=== PATIENT | female | born 1980 | race Caucasian/White ===

== ENCOUNTER 2018-08-25 20:08 | Inpatient (IN) ==
--- NOTE | 2018-08-25 21:01 | ED ---
HPI General Chief Complaint: Psychiatric Symptoms Stated Complaint: [facility] pd/psych eval Time Seen by Provider: 08/25/18 20:39 Source: patient and police Mode of arrival: ambulatory Limitations: no limitations History of Present Illness HPI Narrative: 38-year-old white female presents emergency department under [place] act by PD. Patient had contacted PD advising them that she has a history of bipolar disorder and schizoaffective disorder and has been off her medicines for the last several months after moving from [place] to [place]. She states that she feels depressed and has contemplated suicide but does not have any current plan. She denies any homicidal ideation. No toxic ingestions. She denies any current medical complaints. Past medical history: Chronic kidney disease, bipolar, schizoaffective disorder Surgical history: Left kidney surgery, laparoscopy with removal of cyst from the right ovary, Social history: Patient does smoke. She denies any alcohol or drugs. Related Data Home Medications Medication Instructions Recorded Confirmed bupropion HCl [Wellbutrin XL] 150 mg PO QAM 08/25/18 08/25/18 hydroxyzine pamoate [Vistaril] 50 mg PO TID PRN 08/25/18 08/25/18 trazodone 100 mg PO DAILY 08/25/18 08/25/18 Allergies Allergy/AdvReac Type Severity Reaction Status Date / Time erythromycin base Allergy Severe CHEST PAIN Verified 08/25/18 22:50 levofloxacin AdvReac Severe Nausea/Vomi Verified 08/25/18 22:50 ting *MDRO Multi-Drug Resistant AdvReac Unknown Rash, Uncoded 08/25/18 22:50 Organism Generalized Review of Systems ROS: all other systems reviewed are negative PMFSH History History Provided By: Patient Medical History Medical History Bipolar disorder (Acute) Social History Social History Substance History: No History of Abuse Second Hand Smoke Exposure: No Smoking Status: Never smoker How Often Do You Have a Drink Containing Alcohol: Never Recent Travel in [facility] within the Last 8 Weeks: No Recent Out of Country Travel within the Last 8 Weeks: No Exam Narrative Exam Narrative: GENERAL: Well-nourished, well-developed patient. SKIN: Warm and dry. HEAD: Normocephalic and atraumatic. EYES: No scleral icterus. No injection or drainage. ENT: No nasal drainage noted. Mucous membranes pink. Airway patent. NECK: Supple, trachea midline. Moves head freely without obvious discomfort. CARDIOVASCULAR: Regular rate and rhythm without murmurs, gallops, or rubs. RESPIRATORY: Breath sounds equal bilaterally. No accessory muscle use. GASTROINTESTINAL: Abdomen soft, non-tender, nondistended. EXTREMITIES: No cyanosis or edema. BACK: Nontender without obvious deformity. No CVA tenderness. NEURO: Patient is alert and oriented. no sensorimotor deficits. Nonfocal. Normal speech. PSYCH: No delusions. No auditory or visual hallucinations. Course Initial Documented Vital Signs Temperature 97.9 F 08/25/18 20:17 Pulse Rate 90 08/25/18 20:17 Respiratory Rate 16 08/25/18 20:17 Blood Pressure 132/71 08/25/18 20:17 Pulse Oximetry 97 08/25/18 20:17 Last Documented Vital Signs Temperature 96.8 F L 08/26/18 18:26 Pulse Rate 95 H 08/26/18 18:26 Respiratory Rate 18 08/26/18 18:26 Blood Pressure 107/60 08/26/18 18:26 Pulse Oximetry 100 08/26/18 18:26 Medical Decision Making MDM Narrative Medical decision making narrative: Patient will have routine laboratory testing for medical clearance Patient's potassium was 2.4. Patient was placed on a monitor. EKG performed. Patient was given 40 mEq of potassium p.o. and 40 mEq of potassium IV. She had a repeat potassium done at 5:45 AM. The potassium had gone up to 5.9. She is given an additional 40 mEq p.o. now at 630 and she will be given a second dose at 9 AM and again at 9 PM if patient is here in the ER. Once the patient gets her third dose of potassium at 9 AM she will be considered medically cleared. Medical Screen Exam Complete: Yes Emergency Medical Condition: Yes Differential Diagnosis Differential Diagnosis: MDM: High Differential diagnoses: Schizophrenia, schizoaffective disorder, bipolar, anxiety, depression, adjustment reaction, mood disorder NOS, ODD, depressive disorder NOS, dementia, dementia with agitation, psychosis NOS, substance induced mood disorder, DMDD, Asperger syndrome, infection,electrolyte abnormality, malingering. Mental health screening discussed with the patient. Psychiatric screen ordered. Lab Data Result diagrams: 08/25/18 20:30 08/26/18 15:00 POC Results POC Urine Results Negative Lab Results 08/25/18 08/25/18 08/25/18 Range/Units 20:30 20:30 20:30 WBC 8.1 (4.0-11.0) th/mm3 RBC 4.13 (4.00-5.30) mil/mm3 Hgb 13.7 (11.6-15.3) gm/dL Hct 41.2 (35.0-46.0) % MCV 99.8 (80.0-100.0) fL MCH 33.1 (27.0-34.0) pg MCHC 33.2 (32.0-36.0) % RDW 15.8 (11.6-17.2) % Plt Count 161 (150-450) th/mm3 MPV 11.0 (7.0-11.0) fL Neut % (Auto) 69.8 (16.0-70.0) % Lymph % (Auto) 23.9 (9.0-44.0) % [place] % (Auto) 5.3 (0.0-8.0) % Eos % (Auto) 0.2 (0.0-4.0) % Baso % (Auto) 0.8 (0.0-2.0) % Neut # (Auto) 5.7 (1.8-7.7) th/mm3 Lymph # (Auto) 1.9 (1.0-4.8) th/mm3 [place] # (Auto) 0.4 (0.0-0.9) th/mm3 Eos # (Auto) 0.0 (0.0-0.4) th/mm3 Baso # (Auto) 0.1 (0.0-0.2) th/mm3 WBC Differential . Differential Comment Auto diff final Sodium 137 (136-145) meq/L Potassium 2.4 L* (3.5-5.1) meq/L Chloride 117 H (98-107) meq/L Carbon Dioxide 15.0 L (21.0-32.0) meq/L Anion Gap 5 (5-15) meq/L BUN 4 L (7-18) mg/dL Creatinine 0.88 (0.50-1.00) mg/dL Estimated GFR 72 L (>89) mL/min Random Glucose 113 H (74-106) mg/dL Calcium 8.2 L (8.5-10.1) mg/dL Magnesium (1.5-2.5) mg/dL Total Bilirubin 0.5 (0.2-1.0) mg/dL AST 38 H (15-37) U/L ALT 58 H (10-53) U/L Alkaline Phosphatase 98 (45-117) U/L Total Protein 7.1 (6.4-8.2) g/dL Albumin 3.6 (3.4-5.0) g/dL Urine Opiates Screen Neg (Neg) Ur Barbiturates Screen Neg (Neg) Ur Amphetamines Screen Neg (Neg) U Benzodiazepines Scrn Neg (Neg) Urine Cocaine Screen Pos H (Neg) U Cannabinoids Screen Neg (Neg) Serum Alcohol Less than 3 (0-5) mg/dL 08/25/18 08/26/18 08/26/18 Range/Units 20:30 06:00 15:00 WBC (4.0-11.0) th/mm3 RBC (4.00-5.30) mil/mm3 Hgb (11.6-15.3) gm/dL Hct (35.0-46.0) % MCV (80.0-100.0) fL MCH (27.0-34.0) pg MCHC (32.0-36.0) % RDW (11.6-17.2) % Plt Count (150-450) th/mm3 MPV (7.0-11.0) fL Neut % (Auto) (16.0-70.0) % Lymph % (Auto) (9.0-44.0) % [place] % (Auto) (0.0-8.0) % Eos % (Auto) (0.0-4.0) % Baso % (Auto) (0.0-2.0) % Neut # (Auto) (1.8-7.7) th/mm3 Lymph # (Auto) (1.0-4.8) th/mm3 [place] # (Auto) (0.0-0.9) th/mm3 Eos # (Auto) (0.0-0.4) th/mm3 Baso # (Auto) (0.0-0.2) th/mm3 WBC Differential Differential Comment Sodium (136-145) meq/L Potassium 2.9 L* 3.1 L (3.5-5.1) meq/L Chloride (98-107) meq/L Carbon Dioxide (21.0-32.0) meq/L Anion Gap (5-15) meq/L BUN (7-18) mg/dL Creatinine (0.50-1.00) mg/dL Estimated GFR (>89) mL/min Random Glucose (74-106) mg/dL Calcium (8.5-10.1) mg/dL Magnesium 2.1 (1.5-2.5) mg/dL Total Bilirubin (0.2-1.0) mg/dL AST (15-37) U/L ALT (10-53) U/L Alkaline Phosphatase (45-117) U/L Total Protein (6.4-8.2) g/dL Albumin (3.4-5.0) g/dL Urine Opiates Screen (Neg) Ur Barbiturates Screen (Neg) Ur Amphetamines Screen (Neg) U Benzodiazepines Scrn (Neg) Urine Cocaine Screen (Neg) U Cannabinoids Screen (Neg) Serum Alcohol (0-5) mg/dL Discharge Plan Discharge Disposition Patient Disposition: 30 Still Patient Discharge Condition Condition: Stable Physicians Team ED Provider: Miguel Moore ED Midlevel Provider: Davion Wu Primary Care Provider: Primary Care Alexandra Valadez Rxs /Orders / Referrals /Forms Prescriptions: No Action hydroxyzine pamoate [Vistaril] 50 mg Capsule 50 mg PO TID PRN (Reason: Anxiety) RF: 0 trazodone 100 mg Tablet 100 mg PO DAILY RF: 0 bupropion HCl [Wellbutrin XL] 150 mg Tablet Extended Release 24 Hr 150 mg PO QAM RF: 0 Status ED Status: Medically Cleared
[2018-08-25 21:13] LABS: Baso # (Auto) 0.1 th/mm3 (0.0-0.2); Baso % (Auto) 0.8 % (0.0-2.0); Eos % (Auto) 0.2 % (0.0-4.0); Hematocrit 41.2 % (35.0-46.0); Hemoglobin 13.7 gm/dL (11.6-15.3); Lymph # (Auto) 1.9 th/mm3 (1.0-4.8); Lymph % (Auto) 23.9 % (9.0-44.0); Mean Corpuscular HGB Conc 33.2 % (32.0-36.0); Mean Corpuscular Hemoglobin 33.1 pg (27.0-34.0); Mean Corpuscular Volume 99.8 fL (80.0-100.0); Mono # (Auto) 0.4 th/mm3 (0.0-0.9); Mono % (Auto) 5.3 % (0.0-8.0); Neut # (Auto) 5.7 th/mm3 (1.8-7.7); Neut % (Auto) 69.8 % (16.0-70.0); Platelet Count 161 th/mm3 (150-450); Red Blood Count 4.13 mil/mm3 (4.00-5.30); Red Cell Distribution Width 15.8 % (11.6-17.2); White Blood Count 8.1 th/mm3 (4.0-11.0)
[2018-08-25 21:35] LABS: Alanine Aminotransferase 58 U/L (10-53); Albumin 3.6 g/dL (3.4-5.0); Alkaline Phosphatase 98 U/L (45-117); Anion Gap 5 meq/L (5-15); Aspartate Aminotransferase 38 U/L (15-37); Blood Urea Nitrogen 4 mg/dL (7-18); Calcium 8.2 mg/dL (8.5-10.1); Chloride 117 meq/L (98-107); Glomerular Filtration Rate 72 mL/min (>89); Glucose,Random 113 mg/dL (74-106); Sodium 137 meq/L (136-145); Total Protein 7.1 g/dL (6.4-8.2)
[2018-08-25 21:36] LABS: Potassium 2.4 meq/L (3.5-5.1)
[2018-08-25 21:53] LABS: Amphetamine Screen,Urine Neg (Neg); Barbiturate Screen,Urine Neg (Neg); Cannabinoid Screen,Urine Neg (Neg); Cocaine Screen,Urine Pos (Neg)
[2018-08-25 21:56] LABS: Opiate Screen,Urine Neg (Neg)
[2018-08-26] MEDS: Potassium Chlor 20 mEq Premix 20 MEQ/100 ML PIGGYBACK IV.SIG SCH ×2 (00:17→03:03)
[2018-08-26] MEDS: Sod Chloride 0.9% Inj 1,000 ML IV.CONT SCH ×3 (00:18→20:47)
--- NOTE | 2018-08-26 08:50 | ECG ---
Date Performed: 08/25/2018 Time Performed: 22:52:00 PTAGE: 38 years EKG: Sinus rhythm POSSIBLE LEFT ATRIAL ENLARGEMENT NONSPECIFIC T-WAVE ABNORMALITY BORDERLINE ECG PREVIOUS TRACING : 08/10/2017 20.59 Compared to previous tracing, nonspecific T wave abnormalit y is now present. DOCTOR: Juan Cai Interpretating Date/Time 08/26/2018 08:49:23
[2018-08-26] MEDS ORDERED: Acetaminophen 325 MG Tablet PO ONE (23:43)
[2018-08-27] MEDS ORDERED: traZODone 100 MG Tablet PO ONE (00:22)
[2018-08-27] MEDS: Sod Chloride 0.9% Inj 1,000 ML IV.CONT SCH ×2 (08:57→16:28)
--- NOTE | 2018-08-27 11:29 | ED ---
HPI - Psych - General Source: patient, old records reviewed, police Mode of arrival: ambulatory Limitations: no limitations - History of Present Illness MD complaint: suicidal ideation, feels depressed Onset (ago): week(s) Duration: constant History of same: Yes Relieving factors: none Context: not taking psychiatric medications Associated psychiatric symptoms: depression, suicidal ideation, auditory hallucinations Associated symptoms: denies other symptoms Treatments prior to arrival: none - General Chief Complaint: Psychiatric Symptoms Stated Complaint: [facility] pd/psych eval Time Seen by Provider: 08/25/18 20:39 - History of Present Illness HPI Narrative: History of Present Illness HPI Narrative: 38-year-old white,single, unemployed female, with history of bipolar disorder presents emergency department under [place] act by PD. Patient had contacted PD advising them that she has a history of bipolar disorder and schizoaffective disorder and has been off her medicines for the last several months after moving from [facility] and that she wants to hurt herself. Patient is seen. Awake alert, oriented. Patient is cooperative. Speech is clear and logical. Patient reports her mood is depressed, feeling suicidal, no current plan. Also reports hearing voices that are intermittent, non-command type. Reports variable sleep pattern with going to to 3 days at a time with without any sleep, feels like her mind is racing, difficulty concentrating. Patient has not taken psychiatric medication for several months since she moved to the area. EMR is reviewed. Her last psychiatric hospitalization at [facility] was in July 2016. She was seen in our ED in July 2017 after an overdose. In terms of substance abuse patient denies any substance abuse but current toxicology is positive for cocaine she denies using any cocaine. (Eli Oliver) - Related Data Home Medications Medication Instructions Recorded Confirmed bupropion HCl [Wellbutrin XL] 150 mg PO QAM 08/25/18 08/25/18 hydroxyzine pamoate [Vistaril] 50 mg PO TID PRN 08/25/18 08/25/18 trazodone 100 mg PO DAILY 08/25/18 08/25/18 Allergies Allergy/AdvReac Type Severity Reaction Status Date / Time erythromycin base Allergy Severe CHEST PAIN Verified 08/25/18 22:50 levofloxacin AdvReac Severe Nausea/Vomi Verified 08/25/18 22:50 ting *MDRO Multi-Drug Resistant AdvReac Unknown Rash, Uncoded 08/25/18 22:50 Organism Generalized PMFSH - History History Provided By: Patient - Medical History Medical History: Medical History (Last Updated 08/25/18 @ 23:31 by Bhavya Canales RN) Bipolar disorder - Social History I have reviewed the patient's Social History: Yes - Tobacco History Second Hand Smoke Exposure: No Smoking Status: Never smoker - Alcohol History How Often Do You Have a Drink Containing Alcohol: Never - Substance Use History Substance History: No History of Abuse - Travel History Recent Travel in the [place] Within the Last 8 Weeks: No Recent Travel Out of the Country Within the Last 8 Weeks: No - Immunization History Tetanus Immunization: Unsure Psychiatric History - Psychiatric History Psychiatric Treatment History: History of Psychiatric Treatment, History of Hospitalization in a Psychiatric Facility History of Inpatient Treatment: Yes Firearms in Home: No - Psychiatric History Patient has had multiple psychiatric hospitalizations her last hospitalization at [facility] was in 2016. Past history of suicide attempt by overdosing. (Eli Oliver) Physical Exam - General Limitations: no limitations Mental Status Examination Consciousness: Alert Orientation: x4 Motor Activity: Normal gait Speech: Unremarkable Language: Adequate Fund of Knowledge: Adequate Attention and Concentration: Adequate Memory: Unremarkable Mood: Sad Affect: Sad Thought Process & Associations: Intact, Logical, Goal directed Thought Content: Hallucinations Hallucination Type: Auditory Delusion Type: None Suicidal Ideation: Yes Suicidal Plan: No Suicidal Intention: No Homicidal Ideation: No Homicidal Plan: No Homicidal Intention: No Insight: Fair Judgment: Adequate Initial Documented Vital Signs Temperature 97.9 F 08/25/18 20:17 Pulse Rate 90 08/25/18 20:17 Respiratory Rate 16 08/25/18 20:17 Blood Pressure 132/71 08/25/18 20:17 Pulse Oximetry 97 08/25/18 20:17 Last Documented Vital Signs Temperature 98.1 F 08/27/18 05:53 Pulse Rate 77 08/27/18 05:53 Respiratory Rate 18 08/27/18 05:53 Blood Pressure 92/55 L 08/27/18 05:53 Pulse Oximetry 98 08/27/18 05:53 MDM - Psych - Diagnosis (1) Schizoaffective disorder, bipolar type Status: Acute - Lab Data Result diagrams: 08/25/18 20:30 08/26/18 15:00 - MDM Narrative Medical decision making narrative: 38-year-old female with history of bipolar disorder, previous suicide attempt, previous psychiatric hospitalization, currently not in treatment who presents to the emergency department under Ortiz act. The patient meets criteria for inpatient psychiatric unit for safety, stabilization and to reinitiate her psychiatric medications. (Eli Oliver) - Lab Data POC Results POC Urine Results Negative Lab Results 08/25/18 08/25/18 08/25/18 Range/Units 20:30 20:30 20:30 WBC 8.1 (4.0-11.0) th/mm3 RBC 4.13 (4.00-5.30) mil/mm3 Hgb 13.7 (11.6-15.3) gm/dL Hct 41.2 (35.0-46.0) % MCV 99.8 (80.0-100.0) fL MCH 33.1 (27.0-34.0) pg MCHC 33.2 (32.0-36.0) % RDW 15.8 (11.6-17.2) % Plt Count 161 (150-450) th/mm3 MPV 11.0 (7.0-11.0) fL Neut % (Auto) 69.8 (16.0-70.0) % Lymph % (Auto) 23.9 (9.0-44.0) % [place] % (Auto) 5.3 (0.0-8.0) % Eos % (Auto) 0.2 (0.0-4.0) % Baso % (Auto) 0.8 (0.0-2.0) % Neut # (Auto) 5.7 (1.8-7.7) th/mm3 Lymph # (Auto) 1.9 (1.0-4.8) th/mm3 [place] # (Auto) 0.4 (0.0-0.9) th/mm3 Eos # (Auto) 0.0 (0.0-0.4) th/mm3 Baso # (Auto) 0.1 (0.0-0.2) th/mm3 WBC Differential . Differential Comment Auto diff final Sodium 137 (136-145) meq/L Potassium 2.4 L* (3.5-5.1) meq/L Chloride 117 H (98-107) meq/L Carbon Dioxide 15.0 L (21.0-32.0) meq/L Anion Gap 5 (5-15) meq/L BUN 4 L (7-18) mg/dL Creatinine 0.88 (0.50-1.00) mg/dL Estimated GFR 72 L (>89) mL/min Random Glucose 113 H (74-106) mg/dL Calcium 8.2 L (8.5-10.1) mg/dL Magnesium (1.5-2.5) mg/dL Total Bilirubin 0.5 (0.2-1.0) mg/dL AST 38 H (15-37) U/L ALT 58 H (10-53) U/L Alkaline Phosphatase 98 (45-117) U/L Total Protein 7.1 (6.4-8.2) g/dL Albumin 3.6 (3.4-5.0) g/dL Urine Opiates Screen Neg (Neg) Ur Barbiturates Screen Neg (Neg) Ur Amphetamines Screen Neg (Neg) U Benzodiazepines Scrn Neg (Neg) Urine Cocaine Screen Pos H (Neg) U Cannabinoids Screen Neg (Neg) Serum Alcohol Less than 3 (0-5) mg/dL 08/25/18 08/26/18 08/26/18 Range/Units 20:30 06:00 15:00 WBC (4.0-11.0) th/mm3 RBC (4.00-5.30) mil/mm3 Hgb (11.6-15.3) gm/dL Hct (35.0-46.0) % MCV (80.0-100.0) fL MCH (27.0-34.0) pg MCHC (32.0-36.0) % RDW (11.6-17.2) % Plt Count (150-450) th/mm3 MPV (7.0-11.0) fL Neut % (Auto) (16.0-70.0) % Lymph % (Auto) (9.0-44.0) % [place] % (Auto) (0.0-8.0) % Eos % (Auto) (0.0-4.0) % Baso % (Auto) (0.0-2.0) % Neut # (Auto) (1.8-7.7) th/mm3 Lymph # (Auto) (1.0-4.8) th/mm3 [place] # (Auto) (0.0-0.9) th/mm3 Eos # (Auto) (0.0-0.4) th/mm3 Baso # (Auto) (0.0-0.2) th/mm3 WBC Differential Differential Comment Sodium (136-145) meq/L Potassium 2.9 L* 3.1 L (3.5-5.1) meq/L Chloride (98-107) meq/L Carbon Dioxide (21.0-32.0) meq/L Anion Gap (5-15) meq/L BUN (7-18) mg/dL Creatinine (0.50-1.00) mg/dL Estimated GFR (>89) mL/min Random Glucose (74-106) mg/dL Calcium (8.5-10.1) mg/dL Magnesium 2.1 (1.5-2.5) mg/dL Total Bilirubin (0.2-1.0) mg/dL AST (15-37) U/L ALT (10-53) U/L Alkaline Phosphatase (45-117) U/L Total Protein (6.4-8.2) g/dL Albumin (3.4-5.0) g/dL Urine Opiates Screen (Neg) Ur Barbiturates Screen (Neg) Ur Amphetamines Screen (Neg) U Benzodiazepines Scrn (Neg) Urine Cocaine Screen (Neg) U Cannabinoids Screen (Neg) Serum Alcohol (0-5) mg/dL
[2018-08-27] MEDS: Loperamide 2 MG Capsule PO PRN (21:04)
[2018-08-27] MEDS: Aluminum/Magnesium/Simethacone Susp 30 ML UDC PO PRN (21:40)
[2018-08-28] MEDS: Aluminum/Magnesium/Simethacone Susp 30 ML UDC PO PRN ×3 (05:15→21:32)
[2018-08-28] MEDS: Loperamide 2 MG Capsule PO PRN ×4 (05:17→21:32)
[2018-08-28 08:56] LABS: Anion Gap 4 meq/L (5-15); Blood Urea Nitrogen 4 mg/dL (7-18); Calcium 8.4 mg/dL (8.5-10.1); Carbon Dioxide 26.1 meq/L (21.0-32.0); Chloride 111 meq/L (98-107); Chol/HDL Ratio 2.28 Ratio; Cholesterol 161 mg/dL (120-200); Glomerular Filtration Rate Greater Than 89 mL/min (>89); Glucose,Random 108 mg/dL (74-106); HDL Cholesterol 70.4 mg/dL (40.0-60.0); LDL Cholesterol,Calculated 67 mg/dL (0-99); Sodium 141 meq/L (136-145); Triglycerides 118 mg/dL (42-150)
[2018-08-28 09:01] LABS: Potassium 2.8 meq/L (3.5-5.1)
[2018-08-28] MEDS ORDERED: Potassium Chloride 25 MEQ Effervescent Tablet PO ONE (10:39)
--- NOTE | 2018-08-28 13:46 | P.HPPSY ---
Provisional Diagnosis Admission Date: August 27, 2018 11:30 Competence Certification of Person's Competence To Provide Express and Informed Consent I have personally examined Stephanie Bonds, a person being served at [facility] on, August 28, 2018 4729. Express and informed consent means consent voluntarily given in writing, by a competent person, after sufficient explanation and disclosure of the subject matter involved to enable the person to make a knowing and willful decision without any element of force, fraud, deceit, duress, or other form of constraint or coercion. This person is 18 years of age or older, is not now known to be incompetent to consent to treatment with a guardian advocate, and does not have a health care surrogate or proxy currently making medical treatment decisions. I have found this person to be one of the following: [X] Competent to provide express and informed consent, as defined above, for voluntary admission to this facility and is competent to provide express and informed consent for treatment. He/she has the consistent capacity to make well reasoned, willful, and knowing decisions concerning his or her medical or mental health treatment. The person fully and consistently understands the purpose of the admission for examination/placement and is fully capable of personally exercising all rights assured under [place] [] Incompetent to provide express and informed consent to voluntary admission, and this is incompetent to provide express and informed consent to treatment. The person must be transferred to involuntary status and a petition for a guardian advocate filed with the Circuit Court. [] Refusing to provide express and informed consent to voluntary admission but is competent to provide express and informed consent for treatment. The person must be discharged or transferred to involuntary status. Form shall be completed within 24 hours of a person's arrival at the receiving facility and filed in the clinical record of each person: 1. Admitted on a voluntary basis 2. Permitted to provide express and informed consent to his/her own treatment 3. Allowed to transfer from involuntary to voluntary status 4. Prior to permitting a person to consent to his or her own treatment after having been previously found incompetent to consent to treatment. History of Present Illness Capacity: Has capacity Chief Complaint: SI History of Present Illness: Patient is a 38-year-old female with a history of mood disorder and multiple suicide attempts. Patient says she has history of bipolar depression. She is admitted to the psychiatric unit with suicidal ideation without plan. There is concern of secondary gain given her homelessness and disability application. Patient is positive for cocaine but claims that is a mistake. She is showing some signs of withdrawal such as nausea and she vomited a couple times today. Nursing noted hypokalemia this morning and she was corrected before my visit. Patient says she has been homeless sleeping intents and then her friends couches. She began feeling hopeless and helpless and had fleeting suicidal ideation. Her protective factors include her son. Today she denies any suicidal ideation intent or plan. Patient also claims that she has "episodes" where she believes her brother implanted a chip in her head. Thought process is clear and logical. Past psych: Patient says she has been diagnosed with bipolar depression in the past. Patient claims she has a suicide attempt once a month via overdose. Denies a history of cutting. Was a patient at [facility]. Past medications include Wellbutrin, Vistaril, Zyprexa, trazodone which she has not had in 4 months Past medical: Chronic kidney disease Past Famhx: Major depression and bipolar in her family Past Social: Patient denies any substance use though she is positive for cocaine. She has 1 child who lives with his father. Not working at this time - Inpatient Certification I certify that the inpatient services were ordered in accordance with Medicare regulations governing the order. This includes certification that hospital inpatient services are reasonable and necessary and in the case of services not specified as inpatient-only under 42 CFR 419.22(n), that they are appropriately provided as inpatient services in accordance to with the 2-midnight benchmark under 43 CFR 412.3(e) I certify that inpatient psychiatric hospital services are medically necessary. Evaluation and treatment and/or diagnostic testing are expected to improve the patient's condition. The patient needs on a daily basis, active treatment furnished directly by or requiring the supervision of inpatient psychiatric facility personnel. Estimated Total Length of Stay (Days): 8 Plans for Post Hospital Care: Home Review of Systems All other systems reviewed negative except as stated in HPI [facility] - History History Provided By: Patient - Medical History Medical History: Medical History (Last Updated 08/28/18 @ 13:43 by Rolando Saldaña DO) Bipolar disorder Kidney disease - Social History I have reviewed the patient's Social History: Yes - Tobacco History Second Hand Smoke Exposure: No Tobacco Use In Past 30 Days: Yes Smoking Status: Former smoker Tobacco Type: Cigarettes - Alcohol History How Often Do You Have a Drink Containing Alcohol: Never - Substance Use History Substance History: No History of Abuse - Travel History Recent Travel in the [place] Within the Last 8 Weeks: No Recent Travel Out of the Country Within the Last 8 Weeks: No - Immunization History Tetanus Immunization: Unsure Medications and Allergies Active Medications: Active Medications Al Hydrox/Mg Hydrox/Simethicone (Mag-Al Plus Susp Liq) 30 ml PO Q6H PRN PRN Reason: DYSPEPSIA Last Admin: 08/28/18 05:15 Dose: 30 ml Al Hydroxide/Mg Hydroxide (Milk Of Magnesia Liq) 30 ml PO Q12H PRN PRN Reason: Mild Constipation Hydroxyzine HCl (Atarax) 50 mg PO Q6H PRN PRN Reason: ANXIETY Sodium Chloride (Ns Inj) 1,000 mls @ 125 mls/hr IV.CONT .Q8H MARILU Last Admin: 08/27/18 16:28 Dose: Not Given Loperamide HCl (Imodium) 2 mg PO Q4H PRN PRN Reason: DIARRHEA Last Admin: 08/28/18 11:59 Dose: 2 mg Potassium Chloride (K-Dur) 20 meq PO DAILY MARILU Sennosides (Senokot) 17.2 mg PO Q12H PRN PRN Reason: Moderate Constipation Allergies Allergy/AdvReac Type Severity Reaction Status Date / Time erythromycin base Allergy Severe CHEST PAIN Verified 08/25/18 22:50 levofloxacin AdvReac Severe Nausea/Vomi Verified 08/25/18 22:50 ting *MDRO Multi-Drug Resistant AdvReac Unknown Rash, Uncoded 08/25/18 22:50 Organism Generalized Home Medications Medication Instructions Recorded Confirmed Type bupropion HCl [Wellbutrin XL] 150 mg PO QAM 08/25/18 08/25/18 History hydroxyzine pamoate [Vistaril] 50 mg PO TID PRN 08/25/18 08/25/18 History trazodone 100 mg PO DAILY 08/25/18 08/25/18 History Results - Labs CBC & Chem 7: 08/25/18 20:30 08/28/18 07:24 Labs: Laboratory Results - last 24 hr 08/28/18 08/28/18 08/28/18 07:24 07:24 07:24 Sodium 141 Potassium 2.8 L* Chloride 111 H Carbon Dioxide 26.1 Anion Gap 4 L BUN 4 L Creatinine 0.61 Estimated GFR Greater than 89 Random Glucose 108 H Hemoglobin A1c 4.0 L Calcium 8.4 L Phosphorus 1.5 L Magnesium Triglycerides 118 Cholesterol 161 LDL Cholesterol, Calc 67 HDL Cholesterol 70.4 H Cholesterol/HDL Ratio 2.28 08/28/18 07:24 Sodium Potassium Chloride Carbon Dioxide Anion Gap BUN Creatinine Estimated GFR Random Glucose Hemoglobin A1c Calcium Phosphorus Magnesium 2.3 Triglycerides Cholesterol LDL Cholesterol, Calc HDL Cholesterol Cholesterol/HDL Ratio Exam Vital signs: Vital Signs 08/27/18 20:10 08/28/18 06:00 Temperature 97.3 F L 98.2 F Pulse Rate 101 H 96 H Respiratory Rate 17 17 Blood Pressure 112/61 112/65 Pulse Oximetry 99 97 Mental Status Examination Appearance: Disheveled Consciousness: Alert Orientation: x4 Motor Activity: Normal gait Speech: Unremarkable Language: Adequate Fund of Knowledge: Adequate Attention and Concentration: Adequate Memory: Unremarkable Mood: Sad Affect: Sad Thought Process & Associations: Intact, Logical, Goal directed Thought Content: Bizarre thinking Delusion Type: Bizarre Suicidal Ideation: No Suicidal Plan: No Suicidal Intention: No Homicidal Ideation: No Homicidal Plan: No Homicidal Intention: No Insight: Fair Judgment: Adequate Assessment and Plan - Assessment (1) Bipolar disorder, current episode depressed, severe, with psychotic features Code(s): F31.5 - Bipolar disorder, current episode depressed, severe, with psychotic features Status: Acute - Plan Plan: Estimated LOS: [] days We will repeat a potassium this afternoon. Parameters were discussed with the nurse and she was asked to call the on-call doctor if it continues to be low. Medications were reviewed with patient and she gives consent to start Seroquel and Atarax. Medical consult ordered. EKG ordered. May sign voluntary Justification for Continued Inpatient Stay: Patient would decompensate in a less restrictive setting
[2018-08-28] MEDS: Ibuprofen 600 MG Tablet PO PRN ×2 (13:49→20:51)
--- NOTE | 2018-08-28 16:43 | P.CON ---
History of Present Illness Service: [facility] Consult date: 08/28/18 Requesting Physician: Rolando Saldaña Reason for Consult: Assist with critically low potassium Primary Care Provider: No Primary Care Physician Chief Complaint: "Diarrhea" History of Present Illness: 38-year-old white female with past medical history of left kidney surgery, chronic kidney disease, bipolar disorder who came into the hospital under [place] act by police department. Apparently patient has contacted the police department stating that she is feeling depressed and contemplated on suicide. Patient is now admitted to inpatient psychiatry unit for further evaluation. Consulted for assistance with critically low potassium. Patient seen and examined today. Reports upon being at the hospital, she started to have nausea, vomiting, diarrhea. States that more than 10 times she was going to the bathroom for liquid stool. States that she always has problems with her potassium she is supposed to be on potassium supplements but she was unable to take it at home. States that she is not on any medications at home. States that she has chronic kidney disease. States that she has multiple surgeries on her right kidney. Patient also states that she has nausea and vomiting and not able to hold her food. States that she was given a one-time dose of Zofran but was not able to help her out. Patient also complains of having nausea and vomiting and burning sensation on her throat after. States she had acid reflux disease. Patient denies any illicit drug use including cocaine which she states that she tested positive at the hospital saying it was impossible because she never does any drugs. States that she can only recall that before she came into the hospital she was at a friend's house because she was homeless and that at a friend's house people were using drugs and there and smoking crack cocaine that she probably inhaled. Otherwise, denies chest pain, palpitations, headaches, dizziness. Denies any burning sensation with urination. Denies shortness of breath or dyspnea. Review of Systems All other systems reviewed negative except as stated in HPI PMF - History History Provided By: Patient - Medical History Medical History: Medical History (Last Reviewed 08/28/18 @ 17:00 by DEANDRE Stokes) Bipolar disorder Kidney disease - Surgical History Surgical History: Surgical History (Last Updated 08/28/18 @ 17:01 by DEANDRE Stokes) History of kidney surgery History of nephrostomy - Family History Family History: Family History (Last Updated 08/28/18 @ 17:01 by DEANDRE Stokes) Other Parents - Social History I have reviewed the patient's Social History: Yes - Tobacco History Second Hand Smoke Exposure: No Tobacco Use In Past 30 Days: Yes Smoking Status: Former smoker Tobacco Type: Cigarettes - Alcohol History How Often Do You Have a Drink Containing Alcohol: Never - Substance Use History Substance History: No History of Abuse - Travel History Recent Travel in the [place] Within the Last 8 Weeks: No Recent Travel Out of the Country Within the Last 8 Weeks: No - Immunization History Tetanus Immunization: Unsure Medications and Allergies Active Medications: Active Medications Al Hydrox/Mg Hydrox/Simethicone (Mag-Al Plus Susp Liq) 30 ml PO Q6H PRN PRN Reason: DYSPEPSIA Last Admin: 08/28/18 14:06 Dose: 30 ml Al Hydroxide/Mg Hydroxide (Milk Of Magnesia Liq) 30 ml PO Q12H PRN PRN Reason: Mild Constipation Hydroxyzine HCl (Atarax) 50 mg PO Q6H PRN PRN Reason: ANXIETY Last Admin: 08/28/18 13:49 Dose: 50 mg Sodium Chloride (Ns Inj) 1,000 mls @ 125 mls/hr IV.CONT .Q8H MARILU Last Admin: 08/27/18 16:28 Dose: Not Given Ibuprofen (Motrin) 600 mg PO Q6HR PRN PRN Reason: PAIN 1-10 AND/OR FEVER >101F Last Admin: 08/28/18 13:49 Dose: 600 mg Loperamide HCl (Imodium) 2 mg PO Q4H PRN PRN Reason: DIARRHEA Last Admin: 08/28/18 11:59 Dose: 2 mg Potassium Chloride (K-Dur) 20 meq PO DAILY MARILU Quetiapine Fumarate (Seroquel) 100 mg PO HS MARILU Sennosides (Senokot) 17.2 mg PO Q12H PRN PRN Reason: Moderate Constipation Allergies Allergy/AdvReac Type Severity Reaction Status Date / Time erythromycin base Allergy Severe CHEST PAIN Verified 08/25/18 22:50 levofloxacin AdvReac Severe Nausea/Vomi Verified 08/25/18 22:50 ting *MDRO Multi-Drug Resistant AdvReac Unknown Rash, Uncoded 08/25/18 22:50 Organism Generalized Home Medications Medication Instructions Recorded Confirmed Type bupropion HCl [Wellbutrin XL] 150 mg PO QAM 08/25/18 08/25/18 History hydroxyzine pamoate [Vistaril] 50 mg PO TID PRN 08/25/18 08/25/18 History trazodone 100 mg PO DAILY 08/25/18 08/25/18 History Physical Exam Vital signs: Vital Signs 08/27/18 20:10 08/28/18 06:00 Temperature 97.3 F L 98.2 F Pulse Rate 101 H 96 H Respiratory Rate 17 17 Blood Pressure 112/61 112/65 Pulse Oximetry 99 97 Narrative: GENERAL: This is a well-nourished, well-developed patient, in no apparent distress. SKIN: Warm and dry. HEENT: Normocephalic. Pupils equal round and reactive. Nose without bleeding. Airway patent. NECK: Trachea midline. CARDIOVASCULAR: Regular rate and rhythm without murmurs, gallops, or rubs. RESPIRATORY: Clear to auscultation. Breath sounds equal bilaterally. No wheezes , rales, or rhonchi. GASTROINTESTINAL: Abdomen soft, non-tender, nondistended. Bowel Sounds normoactive. MUSCULOSKELETAL: Extremities without clubbing, cyanosis, or edema. NEUROLOGICAL: Awake and alert. No focal neuro deficit. Moves all extremities. Normal speech. Assessment and Plan - Assessment (1) Hypokalemia Code(s): E87.6 - Hypokalemia Status: Acute (2) Diarrhea Code(s): R19.7 - Diarrhea, unspecified Status: Acute (3) Schizoaffective disorder, bipolar type Code(s): F25.0 - Schizoaffective disorder, bipolar type Status: Acute - Plan 38-year-old white female with past medical history of left kidney surgery, chronic kidney disease, bipolar disorder who came into the hospital under [place] act by police department. Apparently patient has contacted the police department stating that she is feeling depressed and contemplated on suicide. Patient is now admitted to inpatient psychiatry unit for further evaluation. Consulted for assistance with critically low potassium Depression, suicidal ideation -Managed by psychiatry team Hypokalemia possibly secondary to excessive fluid loss secondary to diarrhea -Potassium supplements. -Magnesium was checked within normal limits. Phosphorus is low. -K-Phos to be administered. -Check BMP tomorrow, include potassium and magnesium Diarrhea Nausea vomiting -Check stool for C. difficile, other pathology -Lactinex twice daily -Zofran PRN -Follow-up results History of chronic kidney disease -Renal indicis within normal DVT prop, ambulatory Code Status: Full code Discussed Condition With: Patient, nursing Discharge Planning: DC disposition by primary team
[2018-08-28] MEDS: Pantoprazole Sodium 20 MG DR Tablet PO SCH (17:20)
[2018-08-28] MEDS: QUEtiapine 100 MG Tablet PO SCH (20:51)
[2018-08-28] MEDS: Lactobacillus Acidophilus/L. Spores Tablet PO SCH (20:51)
[2018-08-28] MEDS: Potassium Phos/Sodium Phos 250 MG Tablet PO SCH (20:51)
[2018-08-29] MEDS: Lactobacillus Acidophilus/L. Spores Tablet PO SCH (08:37)
[2018-08-29] MEDS: Pantoprazole Sodium 20 MG DR Tablet PO SCH (08:37)
[2018-08-29] MEDS: Loperamide 2 MG Capsule PO PRN ×3 (08:37→20:05)
[2018-08-29] MEDS: Potassium Phos/Sodium Phos 250 MG Tablet PO SCH ×2 (08:37→20:02)
[2018-08-29] MEDS: Ibuprofen 600 MG Tablet PO PRN ×2 (08:37→20:05)
[2018-08-29 09:09] LABS: Baso % (Auto) 0.4 % (0.0-2.0); Eos % (Auto) 0.7 % (0.0-4.0); Hematocrit 38.8 % (35.0-46.0); Hemoglobin 12.9 gm/dL (11.6-15.3); Lymph # (Auto) 2.4 th/mm3 (1.0-4.8); Lymph % (Auto) 38.9 % (9.0-44.0); Mean Corpuscular HGB Conc 33.2 % (32.0-36.0); Mean Corpuscular Hemoglobin 33.8 pg (27.0-34.0); Mean Corpuscular Volume 101.7 fL (80.0-100.0); Mean Platelet Volume 11.2 fL (7.0-11.0); Mono # (Auto) 0.3 th/mm3 (0.0-0.9); Mono % (Auto) 4.6 % (0.0-8.0); Neut # (Auto) 3.4 th/mm3 (1.8-7.7); Neut % (Auto) 55.4 % (16.0-70.0); Platelet Count 133 th/mm3 (150-450); Red Blood Count 3.81 mil/mm3 (4.00-5.30); Red Cell Distribution Width 15.8 % (11.6-17.2); White Blood Count 6.2 th/mm3 (4.0-11.0)
[2018-08-29 09:28] LABS: Anion Gap 2 meq/L (5-15); Blood Urea Nitrogen 5 mg/dL (7-18); Calcium 8.5 mg/dL (8.5-10.1); Chloride 112 meq/L (98-107); Glomerular Filtration Rate Greater Than 89 mL/min (>89); Glucose,Random 86 mg/dL (74-106); Potassium 3.2 meq/L (3.5-5.1); Sodium 142 meq/L (136-145)
--- NOTE | 2018-08-29 14:35 | ECG ---
Date Performed: 08/28/2018 Time Performed: 15:09:52 PTAGE: 38 years EKG: Sinus rhythm NORMAL ECG Compared to PREVIOUS TRACING , ST-T changes somewhat improved, atrial abnormality is less prominent. PREVIOUS TRACIN08/25/2018 22.52 DOCTOR: Ivan Pulido Interpretating Date/Time 08/29/2018 14:34:20
--- NOTE | 2018-08-29 15:29 | P.PNPSY ---
Subjective Chief Complaint: SI Remarks: Reviewed electronic medical records and discussed case with staff. Follow-up was conducted in the patient's room . Patient is lying on her bed. She is very angry , irritable and expressing that she has alot of anxiety. Patient states that the only medications that help her are Wellbutrin XL 150 mg qd and Zyprexa ( unknown dose). Will order the Wellbutrin and psychiatrist will see patient tomorrow to address the Zyprexa. While on the unit, I witnessed the patient screaming up and down the hernandez while the unit had a Halicat. She would not redirect , so the patient was moved to the 2700 unit. Patient denies AVH. She denies SI/HI. Review of Systems All other systems reviewed negative except as stated in HPI Mental Status Examination Appearance: Disheveled Consciousness: Alert Orientation: x4 Motor Activity: Normal gait Speech: Unremarkable Language: Adequate Fund of Knowledge: Adequate Attention and Concentration: Adequate Memory: Unremarkable Mood: Sad Affect: Sad Thought Process & Associations: Intact, Logical, Goal directed Thought Content: Bizarre thinking Hallucination Type: None Delusion Type: Bizarre Suicidal Ideation: No Suicidal Plan: No Suicidal Intention: No Homicidal Ideation: No Homicidal Plan: No Homicidal Intention: No Insight: Fair Judgment: Adequate Assessment and Plan - Assessment (1) Schizoaffective disorder, bipolar type Code(s): F25.0 - Schizoaffective disorder, bipolar type Status: Acute - Plan Plan: Estimated LOS: [] days Continue current treatment plan. Patient will be seen by psychiatry on Thursday. Justification for Continued Inpatient Stay: Moving patient to a less restrictive environment may result in her decompensation.
--- NOTE | 2018-08-29 15:44 | P.PN ---
Subjective Interval history: Follow-up visit hypokalemia, diarrhea, nausea, vomiting. Patient seen and examined today. Reports she has no more nausea, vomiting. Continues to have diarrhea. But has slightly improved compared to yesterday. Discussed with patient results of labs. Denies pain and discomfort. Denies SOB/ dyspnea. Denies chest pain, palpitations, headaches, dizziness. Denies fevers, chills. Denies dysuria. Physical Exam Vital signs: Vital Signs 08/28/18 17:30 08/29/18 05:50 Temperature 98.2 F 97.9 F Pulse Rate 94 H 99 H Respiratory Rate 16 17 Blood Pressure 98/59 L Pulse Oximetry 100 97 Intake & Output 08/28/18 08/29/18 08/29/18 18:59 06:59 18:59 Weight 81.647 kg Other: Weight On Admission 81.647 kg Narrative: GENERAL: This is a well-nourished, well-developed patient, in no apparent distress. SKIN: Warm and dry. HEENT: Normocephalic. Pupils equal round and reactive. Nose without bleeding. Airway patent. NECK: Trachea midline. CARDIOVASCULAR: Regular rate and rhythm without murmurs, gallops, or rubs. RESPIRATORY: Clear to auscultation. Breath sounds equal bilaterally. No wheezes , rales, or rhonchi. GASTROINTESTINAL: Abdomen soft, non-tender, nondistended. Bowel Sounds normoactive. MUSCULOSKELETAL: Extremities without clubbing, cyanosis, or edema. NEUROLOGICAL: Awake and alert. No focal neuro deficit. Moves all extremities. Normal speech. Results - Labs CBC & Chem 7: 08/29/18 08:23 08/29/18 08:23 Laboratory Results - last 24 hr 08/27/18 08/28/18 08/29/18 21:00 16:04 08:23 WBC 6.2 RBC 3.81 L Hgb 12.9 Hct 38.8 MCV 101.7 H MCH 33.8 MCHC 33.2 RDW 15.8 Plt Count 133 L MPV 11.2 H Neut % (Auto) 55.4 Lymph % (Auto) 38.9 Sanders % (Auto) 4.6 Eos % (Auto) 0.7 Baso % (Auto) 0.4 Neut # (Auto) 3.4 Lymph # (Auto) 2.4 Sanders # (Auto) 0.3 Eos # (Auto) 0.0 Baso # (Auto) 0.0 WBC Differential . Differential Comment Auto diff final Sodium Potassium 2.9 L* Chloride Carbon Dioxide Anion Gap BUN Creatinine Estimated GFR Random Glucose Calcium Stl C.difficile DNA Amp Negative St C. diff Tox Epid 027 Negative 08/29/18 08:23 WBC RBC Hgb Hct MCV MCH MCHC RDW Plt Count MPV Neut % (Auto) Lymph % (Auto) Sanders % (Auto) Eos % (Auto) Baso % (Auto) Neut # (Auto) Lymph # (Auto) Sanders # (Auto) Eos # (Auto) Baso # (Auto) WBC Differential Differential Comment Sodium 142 Potassium 3.2 L Chloride 112 H Carbon Dioxide 28.0 Anion Gap 2 L BUN 5 L Creatinine 0.67 Estimated GFR Greater than 89 Random Glucose 86 Calcium 8.5 Stl C.difficile DNA Amp St C. diff Tox Epid 027 Microbiology 08/28/18 21:00 Stool Enteric Pathogens (PCR) - Final No enteric pathogens detected by PCR (No Salmonella sp., Shigella sp., Campylobacter sp., Yersinia enterocolitica, Vibrio sp., Norovirus, or EHEC (Shiga Toxin 1 or Shiga Toxin 2) detected. Assessment and Plan - Assessment (1) Hypokalemia Code(s): E87.6 - Hypokalemia Status: Acute (2) Diarrhea Code(s): R19.7 - Diarrhea, unspecified Status: Acute (3) Schizoaffective disorder, bipolar type Code(s): F25.0 - Schizoaffective disorder, bipolar type Status: Acute - Plan 38-year-old white female with past medical history of left kidney surgery, chronic kidney disease, bipolar disorder who came into the hospital under [place] act by police department. Apparently patient has contacted the police department stating that she is feeling depressed and contemplated on suicide. Patient is now admitted to inpatient psychiatry unit for further evaluation. Consulted for assistance with critically low potassium Depression, suicidal ideation -Managed by psychiatry team Hypokalemia possibly secondary to excessive fluid loss secondary to diarrhea -Potassium supplements. -Magnesium was checked within normal limits. Phosphorus is low. -K-Phos BID -Improving. Cont supplement daily. Check BP mag phos Diarrhea Nausea, vomiting -C. difficile, negative -Enteric pathogen negative -Lactinex twice daily -Zofran PRN -Imodium as needed History of chronic kidney disease -Renal indicis within normal DVT prop, ambulatory If within normal labs tomorrow, will continue with daily supplementation of potassium, will sign off. Code Status: Full Code Discussed Condition With: Patient, nursing Discharge Planning: DC disposition by primary team
[2018-08-29] MEDS: QUEtiapine 100 MG Tablet PO SCH (20:02)
[2018-08-29] MEDS: Aluminum/Magnesium/Simethacone Susp 30 ML UDC PO PRN (20:05)
[2018-08-30] MEDS: Lactobacillus Acidophilus/L. Spores Tablet PO SCH ×2 (09:02→20:25)
[2018-08-30] MEDS: Pantoprazole Sodium 20 MG DR Tablet PO SCH (09:03)
[2018-08-30] MEDS: buPROPion 150 MG 12 HR Tablet PO SCH (09:03)
[2018-08-30] MEDS: Potassium Phos/Sodium Phos 250 MG Tablet PO SCH ×2 (09:04→20:25)
[2018-08-30] MEDS: Loperamide 2 MG Capsule PO PRN ×2 (09:10→20:29)
[2018-08-30 10:06] LABS: Anion Gap 2 meq/L (5-15); Blood Urea Nitrogen 7 mg/dL (7-18); Carbon Dioxide 27.6 meq/L (21.0-32.0); Chloride 111 meq/L (98-107); Glomerular Filtration Rate Greater Than 89 mL/min (>89); Glucose,Random 75 mg/dL (74-106); Magnesium 2.3 mg/dL (1.5-2.5); Phosphorus 3.6 mg/dL (2.5-4.9); Potassium 4.3 meq/L (3.5-5.1); Sodium 141 meq/L (136-145)
--- NOTE | 2018-08-30 11:18 | P.PNPSY ---
Subjective Chief Complaint: SI Remarks: Patient seen and examined with nurse. Chart reviewed. Case discussed with nursing staff who reports patient is somewhat obstreperous and demanding. Case discussed with counselor. On my examination today, the patient presents as mildly irritable. She complains of poor sleep. She complains of feeling anxious during the day and says that her mind never stops. She complains of ongoing low mood and vague suicidal ideation although she does not report any specific plan or intent and likewise does not report any desire to hurt herself on the inpatient unit. She denies homicidal ideation. She reports a history of vague auditory hallucinations but does not describe any AVH now. 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 She denies any side effects from medications. She is agreeable to titration of her Seroquel to target ongoing psychiatric symptoms. She denies any history of eating disorder, seizures or alcoholism with regards to the Wellbutrin. No physical complaints. Vital Signs Temp Pulse Resp BP Pulse Ox 08/30/18 06:00 98.6 F 94 H 17 99/47 L 100 Intake and Output 08/29/18 08/30/18 08/30/18 22:59 06:59 14:59 Other: Weight 81.6 kg Laboratory Tests 08/25/18 08/25/18 08/29/18 20:30 20:30 08:23 WBC 6.2 Hgb 12.9 Plt Count 133 L Sodium Potassium Chloride Carbon Dioxide BUN Creatinine Estimated GFR Random Glucose Phosphorus Magnesium AST 38 H ALT 58 H Alkaline Phosphatase 98 Urine Cocaine Screen Pos H Serum Alcohol Less than 3 08/30/18 09:22 WBC Hgb Plt Count Sodium 141 Potassium 4.3 D Chloride 111 H Carbon Dioxide 27.6 BUN 7 Creatinine 0.63 Estimated GFR Greater than 89 Random Glucose 75 Phosphorus 3.6 Magnesium 2.3 AST ALT Alkaline Phosphatase Urine Cocaine Screen Serum Alcohol Labs reviewed. Potassium noted to be improved. Patient insists that she was not using cocaine prior to admission but does say she was in an area where drugs were being used. EKG NSR with QTc 390ms, not prolonged. Mental Status Examination Appearance: Appropriate Consciousness: Alert Orientation: Person, Place (At least) Motor Activity: Normal gait, Other (No motor abnormalities noted) Speech: Unremarkable Language: Adequate Fund of Knowledge: Adequate Attention and Concentration: Adequate Memory: Unremarkable Mood: Other (Dysphoric) Affect: Irritable, Other (Restricted) Thought Process & Associations: Intact, Logical, Linear Thought Content: Appropriate Hallucination Type: None Delusion Type: Other (No clear delusions presently. Possible historical somatic delusion regarding chip as noted above.) Suicidal Ideation: No Suicidal Plan: No Suicidal Intention: No Homicidal Ideation: No Homicidal Plan: No Homicidal Intention: No Insight: Fair Judgment: Impulsive Assessment and Plan - Assessment (1) Adjustment disorder with mixed anxiety and depressed mood Code(s): F43.23 - Adjustment disorder with mixed anxiety and depressed mood Status: Acute (2) Cocaine abuse Code(s): F14.10 - Cocaine abuse, uncomplicated Status: Suspected - Plan Plan: Titrate Seroquel to 25 mg morning and afternoon and 150 mg at bedtime for mood stabilization as well as to assist with management of complaints of anxiety and sleep. I have placed blood pressure hold parameters on the Seroquel and reviewed the R/B/A with patient including the potential metabolic, motor and hypotensive side effects of this medication. Continue Wellbutrin as ordered. Check beta hCG. Check urine cocaine confirmatory test. Hospitalist input noted and appreciated. Continue other medications and care as ordered. Justification for Continued Inpatient Stay: Medication changes. High risk for decompensation in less restrictive environment. Discharge Planning: Pending psychiatric stabilization. Request Healthcare Surrogate/Guardian Advocate?: No
[2018-08-30] MEDS: Ibuprofen 600 MG Tablet PO PRN ×2 (15:01→21:11)
[2018-08-30] MEDS: QUEtiapine 25 MG Tablet PO SCH ×2 (15:02→20:27)
[2018-08-30] MEDS: QUEtiapine 100 MG Tablet PO SCH (20:26)
[2018-08-31] MEDS: Pantoprazole Sodium 20 MG DR Tablet PO SCH (08:41)
[2018-08-31] MEDS: Potassium Phos/Sodium Phos 250 MG Tablet PO SCH ×2 (08:42→20:51)
[2018-08-31] MEDS: buPROPion 150 MG 12 HR Tablet PO SCH (08:42)
[2018-08-31] MEDS: Lactobacillus Acidophilus/L. Spores Tablet PO SCH ×2 (08:42→20:50)
[2018-08-31] MEDS: Loperamide 2 MG Capsule PO PRN ×3 (08:48→20:58)
[2018-08-31] MEDS: QUEtiapine 25 MG Tablet PO SCH ×3 (08:49→20:54)
[2018-08-31] MEDS: Ibuprofen 600 MG Tablet PO PRN ×3 (08:50→20:56)
--- NOTE | 2018-08-31 10:52 | P.PNPSY ---
Subjective Chief Complaint: SI Remarks: Patient seen and examined with nurse and counselor. Chart reviewed. Case discussed with nursing staff who reports patient is somewhat demanding but otherwise no real behavioral problem. Case discussed in treatment team. On my examination today, the patient describes her mood as "mellow." She denies any hallucinations. Denies any SI or HI. She does complain of high anxiety and notes that she has been on BuSpar in the past to good effect for this problem. Some cluster B personality traits and staff splitting noted. No side effects from medications. No physical complaints. Requesting transfer back to lower acuity unit. Vital Signs Temp Pulse Resp BP Pulse Ox 08/31/18 06:22 97.8 F 97 H 18 95/48 L 97 08/30/18 16:00 88 20 99/49 L 100 Intake and Output 08/31/18 08/31/18 08/31/18 06:59 14:59 22:59 Other: Date of Last Bowel Movement 08/30/18 08/31/18 Labs reviewed. bHCG neg. Confirmatory cocaine pending. Review of Systems All other systems reviewed negative except as stated in HPI Mental Status Examination Appearance: Appropriate Consciousness: Alert Orientation: Person, Place (At least) Motor Activity: Normal gait, Other (No abnormal motor movements noted) Speech: Unremarkable Language: Adequate Fund of Knowledge: Adequate Attention and Concentration: Adequate Memory: Unremarkable Mood: Other ("Mellow") Affect: Blunt Thought Process & Associations: Intact, Logical, Linear Thought Content: Appropriate Hallucination Type: None Delusion Type: None Suicidal Ideation: No Suicidal Plan: No Suicidal Intention: No Homicidal Ideation: No Homicidal Plan: No Homicidal Intention: No Insight: Fair Judgment: Impulsive Assessment and Plan - Assessment (1) Adjustment disorder with mixed anxiety and depressed mood Code(s): F43.23 - Adjustment disorder with mixed anxiety and depressed mood Status: Acute (2) Cocaine abuse Code(s): F14.10 - Cocaine abuse, uncomplicated Status: Suspected - Plan Plan: Add BuSpar 10mg TID for management of anxiety. Continue Seroquel as ordered. Transfer to 2600 unit when bed available. Continue other medications and care as ordered. Justification for Continued Inpatient Stay: Medication changes. Risk for decompensation in less restrictive environment. Discharge Planning: Pending psychiatric stabilization. Request Healthcare Surrogate/Guardian Advocate?: No
--- NOTE | 2018-08-31 17:26 | P.PNIM ---
Subjective Interval history: Follow-up visit hypokalemia, diarrhea, nausea, vomiting. Patient seen and examined complaint of diarrhea still however better with Imodium. Patient complained of right ear pain and dizziness. Patient states that he always have a history of right ear infection usually happen when she gets dizzy. Patient denies any fever or chills, denies any headache, chest pain, or shortness of breath. Patient denies any nausea or vomiting at this time. Physical Exam Vital signs: Vital Signs 08/31/18 06:22 Temperature 97.8 F Pulse Rate 97 H Respiratory Rate 18 Blood Pressure 95/48 L Pulse Oximetry 97 Intake & Output 08/30/18 08/31/18 08/31/18 18:59 06:59 18:59 Other: Date of Last Bowel Movement 08/30/18 08/31/18 Narrative: GENERAL: Well-developed, well-nourished, female in no apparent distress SKIN: Warm and dry. HEAD: Atraumatic. Normocephalic. EYES: Pupils equal and round. No scleral icterus. No injection or drainage. ENT: No nasal bleeding or discharge. Mucous membranes pink and moist. Right ear with slight redness NECK: Trachea midline. No JVD. CARDIOVASCULAR: Regular rate and rhythm. RESPIRATORY: No accessory muscle use. Clear to auscultation. Breath sounds equal bilaterally. GASTROINTESTINAL: Abdomen soft, non-tender, nondistended. Hepatic and splenic margins not palpable. MUSCULOSKELETAL: Extremities without clubbing, cyanosis, or edema. No obvious deformities. NEUROLOGICAL: Awake and alert. No obvious cranial nerve deficits. Motor grossly within normal limits. Five out of 5 muscle strength in the arms and legs. Normal speech. PSYCHIATRIC: Appropriate mood and affect; insight and judgment poor Results - Labs CBC & Chem 7: 08/29/18 08:23 08/30/18 09:22 Assessment and Plan - Assessment (1) Hypokalemia Code(s): E87.6 - Hypokalemia Status: Acute (2) Diarrhea Code(s): R19.7 - Diarrhea, unspecified Status: Acute (3) Schizoaffective disorder, bipolar type Code(s): F25.0 - Schizoaffective disorder, bipolar type Status: Acute - Plan 38-year-old white female with past medical history of left kidney surgery, chronic kidney disease, bipolar disorder who came into the hospital under [place] act by police department. Apparently patient has contacted the police department stating that she is feeling depressed and contemplated on suicide. Patient is now admitted to inpatient psychiatry unit for further evaluation. Consulted for assistance with critically low potassium Depression, suicidal ideation, bipolar disorder -Managed by psychiatry team Hypokalemia possibly secondary to excessive fluid loss secondary to diarrhea -Potassium supplements. -Magnesium was checked within normal limits. Phosphorus is low. -Continue K-Phos BID -Improving. Cont supplement daily. Check BP mag phos Diarrhea Nausea, vomiting-resolved -C. difficile, negative -Enteric pathogen negative -Lactinex twice daily -Zofran PRN -Imodium as needed History of chronic kidney disease -Renal indicis within normal Right ear canal infection - add Cortisporin ear drop -monitor DVT prop, ambulatory Code Status: Full code Discussed Condition With: Patient and nurse
[2018-08-31] MEDS ORDERED: Neomycin/Polymyx/HC Otic Soln 200 DROP/10 ML Bottle RIGHT EAR SCH (18:00)
[2018-08-31] MEDS: QUEtiapine 100 MG Tablet PO SCH (20:54)
[2018-09-01] MEDS: Ibuprofen 600 MG Tablet PO PRN (08:53)
[2018-09-01] MEDS: Potassium Phos/Sodium Phos 250 MG Tablet PO SCH (08:54)
[2018-09-01] MEDS: buPROPion 150 MG 12 HR Tablet PO SCH (08:54)
[2018-09-01] MEDS: QUEtiapine 25 MG Tablet PO SCH (08:54)
[2018-09-01] MEDS: Lactobacillus Acidophilus/L. Spores Tablet PO SCH (08:54)
[2018-09-01] MEDS: Pantoprazole Sodium 20 MG DR Tablet PO SCH (08:54)
--- NOTE | 2018-09-01 10:34 | P.DSPSY ---
Psychiatry Discharge Summary Inpatient Psychiatric care?: Yes Advance Directives: No Mental Health Advance Directive: No Health Care Proxy: No - Admission Admission Date: August 27, 2018 11:30 - Admission Diagnosis (1) Bipolar disorder, current episode depressed, severe, with psychotic features Code(s): F31.5 - Bipolar disorder, current episode depressed, severe, with psychotic features Brief History: Patient is a 38-year-old female with a history of mood disorder and multiple suicide attempts. Patient says she has history of bipolar depression. She is admitted to the psychiatric unit with suicidal ideation without plan. There is concern of secondary gain given her homelessness and disability application. Patient is positive for cocaine but claims that is a mistake. She is showing some signs of withdrawal such as nausea and she vomited a couple times today. Nursing noted hypokalemia this morning and she was corrected before my visit. Patient says she has been homeless sleeping intents and then her friends couches. She began feeling hopeless and helpless and had fleeting suicidal ideation. Her protective factors include her son. Today she denies any suicidal ideation intent or plan. Patient also claims that she has "episodes" where she believes her brother implanted a chip in her head. Thought process is clear and logical. Past psych: Patient says she has been diagnosed with bipolar depression in the past. Patient claims she has a suicide attempt once a month via overdose. Denies a history of cutting. Was a patient at [facility]. Past medications include Wellbutrin, Vistaril, Zyprexa, trazodone which she has not had in 4 months Past medical: Chronic kidney disease Past Famhx: Major depression and bipolar in her family Past Social: Patient denies any substance use though she is positive for cocaine. She has 1 child who lives with his father. Not working at this time Tobacco Use In Past 30 Days: Yes How Often Do You Have a Drink Containing Alcohol: Never Hospital Course: Patient was admitted to a locked, inpatient psychiatric unit. A general medical consultation was obtained. Appropriate precautions were in place throughout patient's hospital stay. Patient was seen and examined on the unit by psychiatry and also visited by counselor. Psychotropic medications were adjusted. Patient tolerated medication changes well without side effects. There was no evidence of any suicidality or homicidality on the inpatient unit. There was no evidence of self-care deficit. On the day of discharge: Patient seen and examined with nurse and [facility] pharmacy care coordinator John. John will be assisting patient with obtaining medications and outpatient mental health services from [facility]. Case discussed with nursing staff. No behavioral issues noted overnight. On my examination today, the patient is requesting discharge from the inpatient psychiatric unit today. She denies any suicidal or homicidal ideation, intent or plan. I can elicit no severe depressive or hypomanic/manic symptoms. She denies any audiovisual hallucinations and I can elicit no delusional beliefs. There is no evidence of impairment in reality construction. She denies side effects from medications. No physical complaints. Suicide and violence risk assessment on day of discharge both suggest lower imminent risk from mental illness, and the patient' s level of function is adequate for outpatient care. Patient has maximized benefit from this inpatient psychiatric hospital stay. She will be discharged today with psychiatric follow-up as arranged by counselor. Patient is also to follow up with primary care. I have counseled the patient to abstain from substances of abuse. I have counseled the patient regarding warning signs for need to return to the psychiatric emergency room as part of a general safety plan. - Discharge Discharge Date: 09/01/18 - Discharge Diagnosis (1) Adjustment disorder with mixed anxiety and depressed mood Diagnosis: Principal Code(s): F43.23 - Adjustment disorder with mixed anxiety and depressed mood Status: Resolved (2) Cocaine abuse Diagnosis: Secondary (Counseled to quit) Code(s): F14.10 - Cocaine abuse, uncomplicated Status: Suspected Discharge Disposition: As per counselor's notes - Discharge Instructions Discharge Diet: Regular Diet Activities You Can Perform: Weight Bearing As Tolerat - Discharge Time <= 30 minutes Mental Status Examination Appearance: Appropriate Consciousness: Alert Orientation: x4 Motor Activity: Normal gait, Other (No motor abnormalities noted) Speech: Unremarkable Language: Adequate Fund of Knowledge: Adequate Attention and Concentration: Adequate Memory: Unremarkable (Grossly intact on clinical exam) Mood: Appropriate Affect: Appropriate Thought Process & Associations: Intact, Logical, Goal directed, Linear Thought Content: Appropriate Hallucination Type: None Delusion Type: None Suicidal Ideation: No Suicidal Plan: No Suicidal Intention: No Homicidal Ideation: No Homicidal Plan: No Homicidal Intention: No Mental Status Exam Remarks: Insight and judgment are fair Discharge/Advance Care Plan - Results Vital Signs: Last Vital Signs Temp 97.6 F 09/01/18 05:40 Pulse 91 H 09/01/18 05:40 Resp 18 09/01/18 05:40 BP 92/54 L 09/01/18 05:40 Pulse Ox 99 09/01/18 05:40 Lab Results: Laboratory Results Hemoglobin A1c 4.0 % (4.3-6.0) L 08/28/18 07:24 Triglycerides 118 mg/dL (42-150) 08/28/18 07:24 Cholesterol 161 mg/dL (120-200) 08/28/18 07:24 LDL Cholesterol, Calc 67 mg/dL (0-99) 08/28/18 07:24 HDL Cholesterol 70.4 mg/dL (40.0-60.0) H 08/28/18 07:24 Summary of Procedures: None done. Pending Results: None - Medications Number of antipsychotic medications at discharge: 1 - Discharge Care Plan Goals to Promote Your Health: * To prevent worsening of your condition and complications * To maintain your health at the optimal level Directions to Meet Your Goals: Take your medications as prescribed Follow your dietary instruction Follow activity as directed Keep your appointments as scheduled Take your immunizations and boosters as scheduled If your symptoms worsen call your PCP, if no PCP go to Urgent Care Center or Emergency Room For 08/06 questions related to your inpatient stay or results of tests pending at discharge, please contact Dr. Calvin Mendosa MD at [phone] Smoking is Dangerous to Your Health. Avoid second hand smoking
== END 2018-09-01 14:10 | disposition home or self-care (01) ==
LOC: NEDAMB 20:08 → NEDA 08-27 11:30 → H260 08-27 13:51 → H270 08-29 11:15
PROVIDERS: ADMIT Psychiatry & Neurology Psychiatry; ATTEND Psychiatry & Neurology Psychiatry

== ENCOUNTER 2018-10-08 13:54 | Inpatient (IN) ==
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
[2018-10-08 15:18] LABS: Baso % (Auto) 0.5 % (0.0-2.0); Eos % (Auto) 0.3 % (0.0-4.0); Hematocrit 38.6 % (35.0-46.0); Hemoglobin 12.8 gm/dL (11.6-15.3); Lymph # (Auto) 1.2 th/mm3 (1.0-4.8); Lymph % (Auto) 18.4 % (9.0-44.0); Mean Corpuscular HGB Conc 33.1 % (32.0-36.0); Mean Corpuscular Hemoglobin 33.4 pg (27.0-34.0); Mean Corpuscular Volume 101.1 fL (80.0-100.0); Mean Platelet Volume 11.2 fL (7.0-11.0); Mono # (Auto) 0.2 th/mm3 (0.0-0.9); Mono % (Auto) 3.9 % (0.0-8.0); Neut # (Auto) 4.9 th/mm3 (1.8-7.7); Neut % (Auto) 76.9 % (16.0-70.0); Platelet Count 141 th/mm3 (150-450); Red Blood Count 3.82 mil/mm3 (4.00-5.30); White Blood Count 6.4 th/mm3 (4.0-11.0)
[2018-10-08 15:46] LABS: Albumin 3.9 g/dL (3.4-5.0); Anion Gap 6 meq/L (5-15); Aspartate Aminotransferase 19 U/L (15-37); Blood Urea Nitrogen 5 mg/dL (7-18); Calcium 8.7 mg/dL (8.5-10.1); Carbon Dioxide 18.4 meq/L (21.0-32.0); Chloride 118 meq/L (98-107); Glomerular Filtration Rate 66 mL/min (>89); Glucose,Random 71 mg/dL (74-106); Potassium 3.2 meq/L (3.5-5.1); Sodium 142 meq/L (136-145)
[2018-10-08 15:51] LABS: Amphetamine Screen,Urine Neg (Neg); Barbiturate Screen,Urine Neg (Neg); Cannabinoid Screen,Urine Neg (Neg); Cocaine Screen,Urine Neg (Neg)
[2018-10-08 15:55] LABS: Alanine Aminotransferase 20 U/L (10-53); Alkaline Phosphatase 74 U/L (45-117); Thyroid Stimulating Hormone 0.707 uIU/mL (0.358-3.740); Total Protein 7.5 g/dL (6.4-8.2)
[2018-10-08 15:55] LABS: Opiate Screen,Urine Neg (Neg)
[2018-10-08 16:03] LABS: Bacteria,Urine Rare /hpf; Clarity,Urine Hazy (Clear); Color,Urine Yellow (Yellw/Straw); Glucose,Urine (UA) Negative (Negative); Hyaline Casts,Urine 5 /lpf (0-3); Leukocyte Esterase,Urine Negative (Negative); Mucus,Urine Few /lpf (Occasional); Nitrite,Urine Negative (Negative); Specific Gravity,Urine 1.019 (1.002-1.035); Squamous Epithelial Cell,Urine 6 /hpf (0-5)
[2018-10-08 16:11] LABS: Bilirubin,Urine Negative (Negative); Ictotest,Urine Negative (Negative)
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
--- NOTE | 2018-10-09 13:45 | ECG ---
Date Performed: 10/08/2018 Time Performed: 14:55:24 PTAGE: 38 years EKG: Sinus rhythm NONSPECIFIC T-WAVE ABNORMALITY BORDERLINE ECG Since PREVIOUS TRACING , no significant change noted PREVIOUS TRACIN09/08/2018 13.45 DOCTOR: Emre Arvizu Interpretating Date/Time 10/09/2018 13:43:50
--- NOTE | 2018-10-09 13:46 | ECG ---
Date Performed: 10/08/2018 Time Performed: 20:46:54 PTAGE: 38 years EKG: Sinus rhythm NORMAL ECG Since PREVIOUS TRACING , no significant change noted PREVIOUS TRACIN10/08/2018 14.55.24 DOCTOR: Emre Arvizu Interpretating Date/Time 10/09/2018 13:44:10
[2018-10-09] MEDS: Aluminum/Magnesium/Simethacone Susp 30 ML UDC PO PRN ×2 (20:53→21:20)
[2018-10-10 09:07] LABS: Anion Gap 5 meq/L (5-15); Blood Urea Nitrogen 7 mg/dL (7-18); Calcium 9.1 mg/dL (8.5-10.1); Carbon Dioxide 25.2 meq/L (21.0-32.0); Chloride 111 meq/L (98-107); Cholesterol 234 mg/dL (120-200); Glomerular Filtration Rate 61 mL/min (>89); Glucose,Random 122 mg/dL (74-106); Sodium 141 meq/L (136-145); Triglycerides 109 mg/dL (42-150)
[2018-10-10 09:10] LABS: Chol/HDL Ratio 2.83 Ratio; HDL Cholesterol 82.4 mg/dL (40.0-60.0); LDL Cholesterol,Calculated 130 mg/dL (0-99)
[2018-10-10 09:13] LABS: Potassium 2.6 meq/L (3.5-5.1)
[2018-10-10] MEDS: buPROPion 150 MG 12 HR Tablet PO SCH (09:23)
[2018-10-10 09:38] LABS: Hemoglobin A1c 4.1 % (4.3-6.0)
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
[2018-10-10] MEDS: Aluminum/Magnesium/Simethacone Susp 30 ML UDC PO PRN (12:42)
--- NOTE | 2018-10-10 13:38 | P.DIET ---
Nutritional Evaluation Nutrition screening: Weight Loss > 10 lbs Screening comments: 10/09 Per pt on admission intake: Yes: "I thought I weight 180 just last month and now it says 157". Patient has eaten 100% of all her meals since admission. She is at 149% of her ideal body weight with a BMI of 29.2. Please consult dietitian if needed.
[2018-10-10 17:18] LABS: Calcium 8.9 mg/dL (8.5-10.1); Carbon Dioxide 26.6 meq/L (21.0-32.0); Magnesium 2.1 mg/dL (1.5-2.5)
[2018-10-10 17:22] LABS: Potassium 2.9 meq/L (3.5-5.1)
[2018-10-11] MEDS: QUEtiapine 25 MG Tablet PO SCH ×2 (01:23→21:20)
[2018-10-11] MEDS: buPROPion 150 MG 12 HR Tablet PO SCH (09:20)
[2018-10-11 09:49] LABS: Calcium 8.8 mg/dL (8.5-10.1); Carbon Dioxide 25.6 meq/L (21.0-32.0); Potassium 3.3 meq/L (3.5-5.1)
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
[2018-10-11] MEDS: Loperamide 2 MG Capsule PO PRN (20:22)
[2018-10-11] MEDS: traZODone 50 MG Tablet PO PRN (21:20)
[2018-10-11] MEDS: Acetaminophen 325 MG Tablet PO PRN (21:21)
[2018-10-12] MEDS: Acetaminophen 325 MG Tablet PO PRN ×2 (08:25→21:23)
[2018-10-12] MEDS: buPROPion 150 MG 12 HR Tablet PO SCH (08:25)
--- NOTE | 2018-10-12 13:39 | P.PNPSY ---
Subjective Remarks: Patient is seen today with [facility] coordinator [place] medical student Jose and Dr. Cao. Chart reviewed. Patient continues depressed but frustrated though this is somewhat passive aggressive dependent behaviors related to discharge resources on placement options. She does have reluctance to consider shelters in the [facility]. Though that might be the only option available to her. She does complain also about some continued anxiety during the day. We will split her Seroquel dose of 25 mg twice daily. While patient does deny specific suicidal ideation or intent there is still vague suicidal thoughts related to her being homeless and helpless. For now continue treatment with medication adjustment above Review of Systems All other systems reviewed negative except as stated in HPI Mental Status Examination Appearance: Appropriate Consciousness: Alert Orientation: x4 Motor Activity: Normal gait Speech: Unremarkable Language: Adequate Fund of Knowledge: Adequate Attention and Concentration: Adequate Memory: Unremarkable Mood: Sad (And tearful) Affect: Other (Decreased range and intensity) Thought Process & Associations: Intact, Logical, Goal directed Thought Content: Appropriate Hallucination Type: None Delusion Type: None Suicidal Ideation: Yes Suicidal Plan: Yes (Denies today) Suicidal Intention: No Homicidal Ideation: No Homicidal Plan: No Homicidal Intention: No Insight: Poor Judgment: Impulsive Assessment and Plan - Assessment (1) Schizoaffective disorder, bipolar type Code(s): F25.0 - Schizoaffective disorder, bipolar type Status: Acute - Plan Plan: Patient remains depressed with vague suicidal ideation showing little initiative are cooperation with finding appropriate placement Justification for Continued Inpatient Stay: At this time patient with decompensated placed in a lower level of care Discharge Planning: To be determined Request Healthcare Surrogate/Guardian Advocate?: No
--- NOTE | 2018-10-12 13:52 | P.CONIM ---
History of Present Illness Service: [facility] Consult date: 10/12/18 Reason for Consult: medical management Primary Care Provider: No Primary Care Physician Chief Complaint: right ear pain History of Present Illness: This is a 38 years old young female with past medical history of left kidney surgery, chronic kidney disease, bipolar disorder and adjustment disorder with depressed mood who presents to the hospital under a Ortiz act by [place] police department alleging that she attempted suicide the night before presentation and will attempt again if he does not get help. It was reported that he she had taken a bottle of Mucus Relief DM in a suicide attempt. It was noted that the patient was recently admitted in August for psychiatric issues and was stabilized on Wellbutrin, Seroquel and trazodone at that time. Patient was admitted to the psychiatric unit for management and treatment. Medicine team was consulted for complaints of earache and medical management. Patient seen and examined sitting on the side of the bed, complains of right ear pain which stated that she always have chronic right ear pain. Patient stated he had she had a recent current chronic ear infection. Patient denies any fever or chills, however complaining of associated postnasal drip which could probably affect her ear. Patient denies any headache or dizziness, denies any chest pain or shortness of breath, denies any abdominal pain, nausea , vomiting, diarrhea or constipation. Patient denies any fever or chills. Patient states that her only past medical history is chronic kidney disease which both of her parents had patient stated that her father of chronic kidney disease, her sister had CKD and is on dialysis and her mother has CKD also. She denies any drinking however she admitted smoking 3-4 cigarettes/day. Patient admitted she was here in August for the same problems. Review of Systems All other systems reviewed negative except as stated in HPI PMFSH - History History Provided By: Patient - Medical History Medical History: Medical History (Last Reviewed 10/12/18 @ 13:49 by DEANDRE Navarro) Bipolar disorder Kidney disease - Surgical History Surgical History: Surgical History (Last Reviewed 10/12/18 @ 13:49 by DEANDRE Navarro) History of kidney surgery History of nephrostomy - Family History Family History: Family History (Last Updated 10/12/18 @ 13:50 by DEANDRE Navarro) Other CKD (chronic kidney disease) Parents - Social History I have reviewed the patient's Social History: Yes - Tobacco History Second Hand Smoke Exposure: Yes Tobacco Use In Past 30 Days: Yes Smoking Status: Light tobacco smoker Tobacco Type: Cigarettes - Alcohol History How Often Do You Have a Drink Containing Alcohol: Never - Substance Use History Substance History: No History of Abuse - Travel History Recent Travel in the [place] Within the Last 8 Weeks: No Recent Travel Out of the Country Within the Last 8 Weeks: No - Immunization History Tetanus Immunization: Unsure Hx Influenza Vaccine This Season: No Medications and Allergies Active Medications: Active Medications Acetaminophen (Tylenol) 650 mg PO Q4H PRN PRN Reason: Pain 1-5 or Temp >101F Last Admin: 10/12/18 08:25 Dose: 650 mg Al Hydrox/Mg Hydrox/Simethicone (Mag-Al Plus Susp Liq) 30 ml PO Q6H PRN PRN Reason: DYSPEPSIA Last Admin: 10/10/18 12:42 Dose: 30 ml Al Hydroxide/Mg Hydroxide (Milk Of Magnesia Liq) 30 ml PO Q12H PRN PRN Reason: Mild Constipation Bupropion HCl (Wellbutrin Sr) 150 mg PO DAILY [facility] Last Admin: 10/12/18 08:25 Dose: 150 mg Hydroxyzine HCl (Atarax) 50 mg PO TID PRN PRN Reason: ANXIETY Last Admin: 10/12/18 11:39 Dose: 50 mg Loperamide HCl (Imodium) 2 mg PO Q6H PRN PRN Reason: DIARRHEA Last Admin: 10/11/18 20:22 Dose: 2 mg Potassium Chloride (K-Dur) 40 meq PO NOW MARILU Last Admin: 10/10/18 17:42 Dose: 40 meq Quetiapine Fumarate (Seroquel) 25 mg PO BID [facility] Sennosides (Senokot) 17.2 mg PO Q12H PRN PRN Reason: Moderate Constipation Trazodone HCl (Desyrel) 150 mg PO HS PRN PRN Reason: Insomnia Last Admin: 10/11/18 21:20 Dose: 150 mg Allergies Allergy/AdvReac Type Severity Reaction Status Date / Time erythromycin base Allergy Severe CHEST PAIN Verified 10/08/18 14:10 levofloxacin AdvReac Severe Nausea/Vomi Verified 10/08/18 14:10 ting *MDRO Multi-Drug Resistant AdvReac Unknown Rash, Uncoded 10/08/18 14:10 Organism Generalized Home Medications Medication Instructions Recorded Confirmed Type bupropion HCl [Wellbutrin SR] 150 mg PO DAILY 10/08/18 10/08/18 History hydroxyzine HCl 50 mg PO TID PRN 10/08/18 10/08/18 History quetiapine [Seroquel] 25 mg PO BID 10/08/18 10/08/18 History trazodone 150 mg PO DAILY 10/08/18 10/08/18 History Exam Vital signs: Vital Signs 10/11/18 17:30 10/12/18 05:34 Temperature 97.8 F 97.8 F Pulse Rate 86 72 Respiratory Rate 18 15 Blood Pressure 106/49 L 100/46 L Pulse Oximetry 99 96 Intake & Output 10/11/18 10/12/18 10/12/18 18:59 06:59 18:59 Intake Total 720 / 720 Balance 720 / 720 Intake: Oral 720 / 720 Other: Date of Last Bowel Movement 10/09/18 Narrative: GENERAL: Well-developed, well-nourished, young female in no apparent distress SKIN: Warm and dry. HEAD: Atraumatic. Normocephalic. EYES: Pupils equal and round. No scleral icterus. No injection or drainage. ENT: No nasal bleeding or discharge. Mucous membranes pink and moist. Ear with no injection or drainage on ear exam with autoscope NECK: Trachea midline. No JVD. CARDIOVASCULAR: Regular rate and rhythm. RESPIRATORY: No accessory muscle use. Clear to auscultation. Breath sounds equal bilaterally. GASTROINTESTINAL: Abdomen soft, non-tender, nondistended. Hepatic and splenic margins not palpable. MUSCULOSKELETAL: Extremities without clubbing, cyanosis, or edema. No obvious deformities. NEUROLOGICAL: Awake and alert. No obvious cranial nerve deficits. Motor grossly within normal limits. Five out of 5 muscle strength in the arms and legs. Normal speech. PSYCHIATRIC: Flat mood and affect; insight and judgment poor Results - Labs CBC & Chem 7: 10/08/18 14:41 10/11/18 08:29 Assessment and Plan - Assessment (1) CKD (chronic kidney disease) Code(s): N18.9 - Chronic kidney disease, unspecified Status: Acute (2) Suicide attempt Code(s): T14.91XA - Suicide attempt, initial encounter Status: Acute (3) Schizoaffective disorder, bipolar type Code(s): F25.0 - Schizoaffective disorder, bipolar type Status: Acute (4) Bipolar disorder, current episode depressed, severe, with psychotic features Code(s): F31.5 - Bipolar disorder, current episode depressed, severe, with psychotic features Status: Acute (5) Adjustment disorder with mixed anxiety and depressed mood Code(s): F43.23 - Adjustment disorder with mixed anxiety and depressed mood Status: Resolved - Plan This is a 38 years old young female with past medical history of left kidney surgery, chronic kidney disease, bipolar disorder and adjustment disorder with depressed mood who presents to the hospital under a Ortiz act by [place] police department alleging that she attempted suicide the night before presentation and will attempt again if he does not get help. It was reported that he she had taken a bottle of Mucus Relief DM in a suicide attempt. Depression, suicidal ideation, bipolar disorder Adjustment disorder Suicidal attempt -Managed by psychiatry team -On Seroquel, and trazodone Acute on chronic kidney disease Hypokalemia, acute on chronic Hypokalemia likely related to CKD -Potassium supplements. -Magnesium was checked within normal limits -Continue K replacement -Avoid nephrotoxins -Monitor BMP Postnasal drip Right ear pain -Right ear pain likely related to postnasal drip - add cetirizine and fluticasone spray -No fever or chills -monitor signs and symptoms DVT proph: ambulatory Code Status: full code Discussed Condition With: patient and nurse
[2018-10-12] MEDS: Loperamide 2 MG Capsule PO PRN (15:00)
[2018-10-12] MEDS: QUEtiapine 25 MG Tablet PO SCH ×2 (15:00→20:42)
[2018-10-12] MEDS: traZODone 50 MG Tablet PO PRN (21:23)
[2018-10-13 06:26] LABS: Baso % (Auto) 0.9 % (0.0-2.0); Eos # (Auto) 0.1 th/mm3 (0.0-0.4); Hemoglobin 11.3 gm/dL (11.6-15.3); Lymph # (Auto) 2.1 th/mm3 (1.0-4.8); Lymph % (Auto) 41.4 % (9.0-44.0); Mean Corpuscular HGB Conc 33.2 % (32.0-36.0); Mean Corpuscular Hemoglobin 33.2 pg (27.0-34.0); Mean Platelet Volume 11.9 fL (7.0-11.0); Mono # (Auto) 0.3 th/mm3 (0.0-0.9); Mono % (Auto) 5.6 % (0.0-8.0); Neut # (Auto) 2.6 th/mm3 (1.8-7.7); Neut % (Auto) 51.1 % (16.0-70.0); Platelet Count 107 th/mm3 (150-450); Red Cell Distribution Width 14.5 % (11.6-17.2); White Blood Count 5.1 th/mm3 (4.0-11.0)
[2018-10-13 07:23] LABS: Calcium 8.5 mg/dL (8.5-10.1); Carbon Dioxide 29.4 meq/L (21.0-32.0); Potassium 4.2 meq/L (3.5-5.1)
[2018-10-13] MEDS: buPROPion 150 MG 12 HR Tablet PO SCH (09:30)
[2018-10-13] MEDS: QUEtiapine 25 MG Tablet PO SCH ×2 (09:30→20:55)
--- NOTE | 2018-10-13 14:28 | P.PNPSY ---
Subjective Remarks: Patient seen in her room with nurse Aminta, chart reviewed, patient compliant medication. Placement issues continue to be significant. It appears patient has had services in [facility] that have not not been successful for her in the past. Patient will be looking at another facility in the [facility] otherwise we may need to consider discharging patient to the detention in [place] Review of Systems All other systems reviewed negative except as stated in HPI Mental Status Examination Appearance: Appropriate Consciousness: Alert Orientation: x4 Motor Activity: Normal gait Speech: Unremarkable Language: Adequate Fund of Knowledge: Adequate Attention and Concentration: Adequate Memory: Unremarkable Mood: Sad (No tears today) Affect: Other (Decreased range and intensity) Thought Process & Associations: Intact, Logical, Goal directed Thought Content: Appropriate Hallucination Type: None Delusion Type: None Suicidal Ideation: Yes (Vague today) Suicidal Plan: Yes (Denies today) Suicidal Intention: No Homicidal Ideation: No Homicidal Plan: No Homicidal Intention: No Insight: Poor Judgment: Impulsive Assessment and Plan - Assessment (1) Schizoaffective disorder, bipolar type Code(s): F25.0 - Schizoaffective disorder, bipolar type Status: Acute - Plan Plan: Patient mood is improving somewhat her suicidality is somewhat vague today she is processing the reality of placement issues Justification for Continued Inpatient Stay: At this time patient with decompensated placed in a lower level of care Discharge Planning: To be determined placement remains problematic Request Healthcare Surrogate/Guardian Advocate?: No
--- NOTE | 2018-10-13 16:09 | P.PNIM ---
Subjective Interval history: Follow up visit post nasal drip, right ear muffled. Patient seen and examined. Reports she cont to have right ear feeling muffled. No fevers, chills. Post nasal drip present. Denies pain and discomfort. Denies chest pain, palpitations, headaches. Denies n/v/d. Denies dysuria Physical Exam Vital signs: Vital Signs 10/12/18 17:29 10/13/18 05:44 Temperature 98.2 F 97.6 F Pulse Rate 73 67 Respiratory Rate 17 18 Blood Pressure 114/51 L 89/69 L Pulse Oximetry 100 98 Intake & Output 10/12/18 10/13/18 10/13/18 18:59 06:59 18:59 Intake Total 1080 / 1080 240 / 240 Balance 1080 / 1080 240 / 240 Intake: Oral 1080 / 1080 240 / 240 Narrative: GENERAL: This is a well-nourished, well developed patient, not in acute distress. SKIN: Warm and dry. HEENT: Normocephalic. Pupils equal round and reactive. Nose without bleeding. Airway patent. Right Posterior cervical lymph node palpable. No sinus tenderness. NECK: Trachea midline. CARDIOVASCULAR: Regular rate and rhythm without murmurs, gallops, or rubs. RESPIRATORY: No wheezes, rales, or rhonchi. Breath sounds CTA. GASTROINTESTINAL: Abdomen soft, non-tender, nondistended. Bowel Sounds normoactive. MUSCULOSKELETAL: Extremities without clubbing, cyanosis. NEUROLOGICAL: Awake and alert. No focal neuro deficit. Moves all extremities. Normal speech. Results - Labs CBC & Chem 7: 10/13/18 05:36 10/13/18 05:36 Laboratory Results - last 24 hr 10/13/18 10/13/18 05:36 05:36 WBC 5.1 RBC 3.40 L Hgb 11.3 L Hct 34.0 L MCV 100.0 MCH 33.2 MCHC 33.2 RDW 14.5 Plt Count 107 L MPV 11.9 H Neut % (Auto) 51.1 Lymph % (Auto) 41.4 Forest % (Auto) 5.6 Eos % (Auto) 1.0 Baso % (Auto) 0.9 Neut # (Auto) 2.6 Lymph # (Auto) 2.1 Forest # (Auto) 0.3 Eos # (Auto) 0.1 Baso # (Auto) 0.0 WBC Differential . Differential Comment Auto diff final Sodium 142 Potassium 4.2 D Chloride 111 H Carbon Dioxide 29.4 Anion Gap 2 L BUN 12 Creatinine 0.84 Estimated GFR 76 L Random Glucose 87 Calcium 8.5 Assessment and Plan - Assessment (1) Suicide attempt Code(s): T14.91XA - Suicide attempt, initial encounter Status: Acute (2) Schizoaffective disorder, bipolar type Code(s): F25.0 - Schizoaffective disorder, bipolar type Status: Acute (3) Bipolar disorder, current episode depressed, severe, with psychotic features Code(s): F31.5 - Bipolar disorder, current episode depressed, severe, with psychotic features Status: Acute - Plan 38 years old young female with past medical history of left kidney surgery, bipolar disorder and adjustment disorder with depressed mood who presents to the hospital under a Ortiz act by [place] police department alleging that she attempted suicide the night before presentation and will attempt again if he does not get help. It was reported that he she had taken a bottle of Mucus Relief DM in a suicide attempt. Depression, suicidal ideation, bipolar disorder Adjustment disorder Suicidal attempt -Managed by psychiatry team Postnasal drip Right ear pain, improved -Right ear pain likely related to postnasal drip, improved -Cetirizine and fluticasone spray x14 days -No fever or chills. -Singulair daily. Discuss smoking cessation. Nicotine patch. -monitor signs and symptoms Hx kidney disease, possible Left kidney that has been surgically removed -Previous ELEMENTARY INSTRUCTIONAL COACH WNL -Slight elevation but has resolved Hypokalemia -Previous admission with hypokalemia secondary to GI losses -No GI losses this admission, may be related to mediation use -Daily potassium supplement -Check labs intermittently DVT Prop ambulatory Full code Discussed with patient, nursing Discharge Planning: DC disposition by primary team
[2018-10-13 17:24] VITALS: RESP 16
[2018-10-13] MEDS: traZODone 50 MG Tablet PO PRN (20:55)
[2018-10-13] MEDS: Montelukast 10 MG Tablet PO SCH (20:55)
[2018-10-13] MEDS: Acetaminophen 325 MG Tablet PO PRN (21:00)
--- NOTE | 2018-10-14 08:24 | P.TTN ---
- Patient Problems Problems: 1. Discharge planning 2. Medication compliance 3. Knowledge deficit 4. Lack of coping skills - Progress Toward Goals Provider Present: Dr. Ishaan Rizvi Provider Input: Patient was admitted over the weekend. Very depressed, been without medication for 6 days. Previously on inpatient over a month ago. Is homeless Nurse(s) Present: Rubens Nurse Input: 10/14: Pt is cooperative and compliant, anxious about placement tomorrow, no behavioral problems Psychiatric Counselors Present: Kei Monge Jr., [facility], Nathalia Ferrara, [facility], Other Psychiatric Therapist Input: 10/13: Pt needs placement. Patient was overwhelmed and very discouraged. Both parents are and she has no family members. 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 Group Spec/RT/OT/LEMONS Present: CRISTO Joseph Group Spec/RT/OT/LEMONS Input: 10/13: Pt attends select groups appropriately; she can be social with peers; depressed - Discharge Plan Other 10/13: Pending discharge to a facility or homeless coalition 10/14: Pt [facility] to [facility] [place] - [facility] Teaching Recipient: Patient
[2018-10-14] MEDS: buPROPion 150 MG 12 HR Tablet PO SCH (08:47)
[2018-10-14] MEDS: QUEtiapine 25 MG Tablet PO SCH ×2 (08:47→14:24)
[2018-10-14] MEDS: Acetaminophen 325 MG Tablet PO PRN ×3 (08:48→20:46)
--- NOTE | 2018-10-14 12:33 | P.PNPSY ---
Subjective Remarks: Patient is seen in her room with medical student Jose and nurse Tanisha. Chart reviewed patient compliant medication. She is still showing some focus on medication asking that we adjust the dose of Seroquel 3 times daily which I have done. Patient continues to appear to be making efforts to find some type of a program. However it appears [place] [facility] [place] no other options available here in town Review of Systems All other systems reviewed negative except as stated in HPI Mental Status Examination Appearance: Appropriate Consciousness: Alert Orientation: x4 Motor Activity: Normal gait Speech: Unremarkable Language: Adequate Fund of Knowledge: Adequate Attention and Concentration: Adequate Memory: Unremarkable Mood: Sad (No tears today) Affect: Other (Decreased range and intensity) Thought Process & Associations: Intact, Logical, Goal directed Thought Content: Appropriate Hallucination Type: None Delusion Type: None Suicidal Ideation: Yes (Vague today) Suicidal Plan: Yes (Denies today) Suicidal Intention: No Homicidal Ideation: No Homicidal Plan: No Homicidal Intention: No Insight: Fair Judgment: Impulsive Assessment and Plan - Assessment (1) Schizoaffective disorder, bipolar type Code(s): F25.0 - Schizoaffective disorder, bipolar type Status: Acute - Plan Plan: Patient remains somewhat depressed however he feels some of the depression is related to her living situation. Continue some manipulation on her part related to this. I have just talked with counselor and. There [place] [facility] [place] [facility] [place] that [place] willing to have this patient come in. Appears to be the only viable option at this time. Patient refused to back to her old apartment. However we need to have the patient discharge early tomorrow morning to get to that facility and appropriate length of time. Thus I will write discharge orders today for tomorrow morning we will supply patient with 2 weeks worth of her medications Justification for Continued Inpatient Stay: Patient to be discharged early tomorrow morning Discharge Planning: Patient be discharged [place] [facility] she will be supplied 2 weeks worth of medication Request Healthcare Surrogate/Guardian Advocate?: No
--- NOTE | 2018-10-14 12:43 | P.DSPSY ---
Psychiatry Discharge Summary Inpatient Psychiatric care?: Yes Advance Directives: No Mental Health Advance Directive: No Health Care Proxy: No - Admission Admission Date: October 09, 2018 11:04 - Admission Diagnosis (1) Schizoaffective disorder, bipolar type Code(s): F25.0 - Schizoaffective disorder, bipolar type Brief History: Please see initial psychiatric HNP by Dr. Calvin Mendosa it is found under reports not documents Tobacco Use In Past 30 Days: Yes How Often Do You Have a Drink Containing Alcohol: Never Hospital Course: Patient's hospital course was uneventful, patient showed little interaction with the milieu. There is some manipulation by her with working with discharge plans and placement training as somewhat passive at this and dependence with it she made token efforts at trying to find residential placement facilities. She continued to deny any possibility of returning to her apartment. She now denies suicidality or homicidality voices or visions. Patient accepts the fact that she will need to go to her fci. We have been able to find a [facility] in [place] for this lady for tomorrow. Patient to be discharged early tomorrow morning to be brought to that facility she will be given a 2-week supply of her scheduled medications also follow up services in the community - Discharge Discharge Date: 10/15/18 - Discharge Diagnosis (1) Schizoaffective disorder, bipolar type Diagnosis: Principal Code(s): F25.0 - Schizoaffective disorder, bipolar type Status: Acute Discharge Disposition: [facility] ([facility] [place] - Discharge Instructions Discharge Diet: Regular Diet Activities You Can Perform: Regular- No Restrictions - Discharge Time > 30 minutes Mental Status Examination Appearance: Appropriate Consciousness: Alert Orientation: x4 Motor Activity: Normal gait Speech: Unremarkable Language: Adequate Fund of Knowledge: Adequate Attention and Concentration: Adequate Memory: Unremarkable Mood: Sad (No tears today) Affect: Other (Decreased range and intensity) Thought Process & Associations: Intact, Logical, Goal directed Thought Content: Appropriate Hallucination Type: None Delusion Type: None Suicidal Ideation: Yes (Vague today) Suicidal Plan: Yes (Denies today) Suicidal Intention: No Homicidal Ideation: No Homicidal Plan: No Homicidal Intention: No Insight: Fair Judgment: Impulsive Discharge/Advance Care Plan - Results Vital Signs: Last Vital Signs Temp 97.4 F L 10/14/18 05:55 Pulse 73 10/14/18 05:55 Resp 16 10/14/18 05:55 BP 87/51 L 10/14/18 05:55 Pulse Ox 96 10/14/18 05:55 Lab Results: Laboratory Results Hemoglobin A1c 4.1 % (4.3-6.0) L 10/10/18 07:42 Triglycerides 109 mg/dL (42-150) 10/10/18 07:42 Cholesterol 234 mg/dL (120-200) H 10/10/18 07:42 LDL Cholesterol, Calc 130 mg/dL (0-99) H 10/10/18 07:42 HDL Cholesterol 82.4 mg/dL (40.0-60.0) H 10/10/18 07:42 TSH 0.707 uIU/mL (0.358-3.740) 10/08/18 14:41 Summary of Procedures: None done Pending Results: None - Medications Number of antipsychotic medications at discharge: 1 - Discharge Care Plan Goals to Promote Your Health: * To prevent worsening of your condition and complications * To maintain your health at the optimal level Directions to Meet Your Goals: Take your medications as prescribed Follow your dietary instruction Follow activity as directed Keep your appointments as scheduled Take your immunizations and boosters as scheduled If your symptoms worsen call your PCP, if no PCP go to Urgent Care Center or Emergency Room For 08/06 questions related to your inpatient stay or results of tests pending at discharge, please contact Dr. Laith Rizvi MD at Smoking is Dangerous to Your Health. Avoid second hand smoking
--- NOTE | 2018-10-14 16:07 | P.PNIM ---
Subjective Interval history: Follow up visit post nasal drip, right ear muffled. Patient seen and examined. She is feeling a lot better, no postnasal drip noted. No fevers, chills. Post nasal drip present. Denies pain and discomfort. Denies chest pain, palpitations, headaches. Denies n/v/d. Denies dysuria Physical Exam Vital signs: Vital Signs 10/13/18 17:23 10/13/18 20:00 10/14/18 05:55 Temperature 98.8 F 97.4 F L Pulse Rate 77 73 Respiratory Rate 16 16 16 Blood Pressure 107/49 L 87/51 L Pulse Oximetry 99 96 Intake & Output 10/13/18 10/14/18 10/14/18 18:59 06:59 18:59 Intake Total 240 / 240 Balance 240 / 240 Weight 81.2 kg Intake: Oral 240 / 240 Narrative: GENERAL: This is a well-nourished, well developed patient, not in acute distress. SKIN: Warm and dry. HEENT: Normocephalic. Pupils equal round and reactive. Nose without bleeding. Airway patent. Right Posterior cervical lymph node palpable. No sinus tenderness. NECK: Trachea midline. CARDIOVASCULAR: Regular rate and rhythm without murmurs, gallops, or rubs. RESPIRATORY: No wheezes, rales, or rhonchi. Breath sounds CTA. GASTROINTESTINAL: Abdomen soft, non-tender, nondistended. Bowel Sounds normoactive. MUSCULOSKELETAL: Extremities without clubbing, cyanosis. NEUROLOGICAL: Awake and alert. No focal neuro deficit. Moves all extremities. Normal speech. Results - Labs CBC & Chem 7: 10/13/18 05:36 10/13/18 05:36 Assessment and Plan - Assessment (1) Suicide attempt Code(s): T14.91XA - Suicide attempt, initial encounter Status: Acute (2) Schizoaffective disorder, bipolar type Code(s): F25.0 - Schizoaffective disorder, bipolar type Status: Acute (3) Bipolar disorder, current episode depressed, severe, with psychotic features Code(s): F31.5 - Bipolar disorder, current episode depressed, severe, with psychotic features Status: Acute - Plan 38 years old young female with past medical history of left kidney surgery, bipolar disorder and adjustment disorder with depressed mood who presents to the hospital under a Ortiz act by [place] police department alleging that she attempted suicide the night before presentation and will attempt again if he does not get help. It was reported that he she had taken a bottle of Mucus Relief DM in a suicide attempt. Depression, suicidal ideation, bipolar disorder Adjustment disorder Suicidal attempt -Managed by psychiatry team Postnasal drip Right ear pain, improved -Right ear pain likely related to postnasal drip, improved -Cetirizine and fluticasone spray x14 days -No fever or chills. -Singulair daily. Discuss smoking cessation. Nicotine patch. -Improved Hx kidney disease, possible Left kidney that has been surgically removed -Previous PHYSICAL THERAPIST WNL -Slight elevation but has resolved Hypokalemia -Previous admission with hypokalemia secondary to GI losses -No GI losses this admission, may be related to mediation use -Daily potassium supplement -Check labs intermittently DVT Prop ambulatory Full code Discussed with patient, nursing Stable from Hospitalist standpoint. We will sign off. Reconsult as needed. Thank you. Discharge Planning: DC disposition by primary team
[2018-10-14 17:27] VITALS: O2SAT 98
[2018-10-14] MEDS: traZODone 50 MG Tablet PO PRN (20:46)
[2018-10-14] MEDS: Montelukast 10 MG Tablet PO SCH (20:46)
[2018-10-14] MEDS ORDERED: QUEtiapine 25 MG Tablet PO SCH (21:00)
[2018-10-15 05:13] VITALS: BP 112/64; PULSE 65; TEMP 97.9
[2018-10-15] MEDS: buPROPion 150 MG 12 HR Tablet PO SCH (08:06)
[2018-10-15] MEDS: QUEtiapine 25 MG Tablet PO SCH (08:07)
[2018-10-15] MEDS: Acetaminophen 325 MG Tablet PO PRN (08:10)
== END 2018-10-15 08:25 | disposition home or self-care (01) ==
LOC: NEPD 13:54 → NEDA 10-09 11:04 → H260 10-09 12:20
PROVIDERS: ADMIT Psychiatry & Neurology Psychiatry; ATTEND Psychiatry & Neurology Psychiatry